=== PATIENT | male | born 1970 | race African-American/Black ===

== ENCOUNTER 2016-09-17 05:56 | Outpatient (CLI) | payer MEDICAID | END 2016-09-17 05:57 | disposition short-term general hospital (02) | DX: R07.9 Chest pain, unspecified (principal) | CPT/HCPCS: A0425; A0427 ==

== ENCOUNTER 2017-01-22 10:56 | Inpatient (IN) | payer MEDICAID ==
[2017-01-22] MEDS ORDERED: PANTOPRAZOLE 40 MG VIAL IVP STA (11:40)
[2017-01-22] MEDS ORDERED: SODIUM CHLORIDE 0.9% 1,000 ML IV ONE (11:40)
--- NOTE | 2017-01-22 11:43 | ED Physician Documentation ---
PD HPI GI BLEED - Stated complaint Stated Complaint: STOMACH PAIN,BLACK STOOL - Chief complaint Chief Complaint: Abd Pain - History obtained from History obtained from: Patient - History of Present Illness Timing - onset: How many days ago (10) Timing - duration: Days (10) Timing - details: Abrupt onset Pain level max: 3 Pain level now: 3 Associated symptoms: Black/tarry stool, Abdominal pain (epigastric). No: Vomiting, Coffee ground emesis, Hematemesis, BRBPR, Maroon stool, Diarrhea, Constipation, Fever, Dizzy, Near syncope / syncope, Loss of appetite Contributing factors: Aspirin use, Anticoagulated (plavix). No: Sick contact, Bad food, Travel, Recent antibiotics, Alcohol use Improved by: Other (nothing) Worsened by: Other (nothing) Similar symptoms before: Has not had sx before Recently seen: Not recently seen Review of Systems Ten Systems: 10 systems reviewed and negative Constitutional: denies: Fever, Chills Ears: denies: Ear pain Nose: denies: Rhinorrhea / runny nose, Congestion Throat: denies: Sore throat Cardiac: denies: Chest pain / pressure Respiratory: denies: Cough GI: denies: Nausea, Vomiting Skin: denies: Rash Musculoskeletal: denies: Neck pain, Back pain Neurologic: denies: Headache PD PAST MEDICAL HISTORY - Past Medical History Past Medical History: Yes Cardiovascular: Hypertension, High cholesterol, Coronary artery disease, [place] - Present Medications Home Medications: Ambulatory Orders Medication Instructions Recorded Confirmed Aspirin 81 mg PO DAILY 01/22/17 01/22/17 Atorvastatin Calcium [Lipitor] 40 mg PO DAILY 01/22/17 01/22/17 Clopidogrel [Plavix] 75 mg PO DAILY 01/22/17 01/22/17 Metoprolol Tartrate 12.5 mg PO DAILY 01/22/17 01/22/17 - Allergies Allergies/Adverse Reactions: Allergies Allergy/AdvReac Type Severity Reaction Status Date / Time No Known Drug Allergies Allergy Verified 01/22/17 11:10 - Social History Does the pt smoke?: No Smoking Status: Never smoker PD ED PE NORMAL - Vitals Vital signs reviewed: Yes - General General: Alert and oriented X 3, No acute distress - HEENT HEENT: PERRL, Moist mucous membranes, Pharynx benign - Neck Neck: Supple, no meningeal sign - Cardiac Cardiac: RRR, Strong equal pulses - Respiratory Respiratory: No respiratory distress, Clear bilaterally - Abdomen Abdomen: Soft, Non tender, Other (mild distention) - Rectal Rectal: Other (dark stool, hemoccult +) - Derm Derm: Warm and dry - Neuro Neuro: Alert and oriented X 3 - Psych Psych: Normal mood Results - Vitals Vitals: Vital Signs - 24 hr 01/22/17 01/22/17 11:00 11:53 Temperature 36.9 C Heart Rate 79 75 Respiratory 14 18 Rate Blood Pressure 142/86 H 140/112 H O2 Saturation 95 100 Oxygen O2 Source Room air - Labs Labs: Laboratory Tests 01/22/17 01/22/17 01/22/17 11:15 11:15 11:15 WBC 9.8 RBC 3.31 L Hgb 10.2 L Hct 31.1 L MCV 94.1 H MCH 31.0 MCHC 32.9 RDW 14.8 Plt Count 332 MPV 7.9 Neut # 7.1 H Lymph # 1.7 [place] # 0.9 Eos # 0.1 Baso # 0.1 Absolute Nucleated RBC 0.02 Nucleated RBCs 0.2 PT INR Sodium 136 Potassium 4.0 Chloride 105 Carbon Dioxide 24 Anion Gap 7.0 BUN 14 Creatinine 1.2 Estimated GFR (MDRD) 79 L Glucose 112 H Calcium 8.8 Total Bilirubin 0.6 AST 25 ALT 21 Alkaline Phosphatase 72 Total Protein 6.7 Albumin 3.9 Globulin 2.8 Albumin/Globulin Ratio 1.4 Lipase 30 Blood Type B POSITIVE Antibody Screen NEGATIVE 01/22/17 12:04 WBC RBC Hgb Hct MCV MCH MCHC RDW Plt Count MPV Neut # Lymph # [place] # Eos # Baso # Absolute Nucleated RBC Nucleated RBCs PT 11.1 INR 1.0 Sodium Potassium Chloride Carbon Dioxide Anion Gap BUN Creatinine Estimated GFR (MDRD) Glucose Calcium Total Bilirubin AST ALT Alkaline Phosphatase Total Protein Albumin Globulin Albumin/Globulin Ratio Lipase Blood Type Antibody Screen PD MEDICAL DECISION MAKING - ED course Complexity details: reviewed results, re-evaluated patient, considered differential, d/w patient, d/w internet marketing consultant ED course: Patient is a 46-year-old gentleman who presents to the emergency department with an upper GI bleed, likely ulcer related. He is on Plavix. He was given Protonix here as well as IV fluid. Feels better after IV fluids. Patient is well -appearing. Discussed the case with Dr. Valdes, surgery on-call who will consult. Also discussed with Dr. Fu, hospitalist who will place the patient in observation. This document was made in part using voice recognition software. While efforts are made to proofread this document, sound alike and grammatical errors may occur. Departure - Departure Disposition: ED Place in Observation Clinical Impression: Upper GI bleed Condition: Stable
[2017-01-22 11:45] LABS: BASOPHILS # (AUTO) 0.1 10^3/uL (0.0-0.1); BASOPHILS % (AUTO) 0.6 %; EOSINOPHILS # (AUTO) 0.1 10^3/uL (0.0-0.7); EOSINOPHILS % (AUTO) 0.8 %; HCT - HEMATOCRIT 31.1 % (42.0-52.0); HGB - HEMOGLOBIN 10.2 g/dL (14.0-18.0); LYMPHOCYTES # (AUTO) 1.7 10^3/uL (1.5-3.5); LYMPHOCYTES % (AUTO) 16.9 %; MEAN CORPUSCULAR HGB CONC 32.9 g/dL (32.0-36.0); MEAN CORPUSCULAR VOLUME 94.1 fL (80.0-94.0); MEAN PLATELET VOLUME 7.9 fL (7.4-11.4); MONOCYTES # (AUTO) 0.9 10^3/uL (0.0-1.0); MONOCYTES % (AUTO) 8.9 %; NEUTROPHILS # (AUTO) 7.1 10^3/uL (1.5-6.6); NEUTROPHILS % (AUTO) 72.8 %; NUCLEATED RED BLOOD CELLS AUTO 0.2 /100WBC; RED BLOOD COUNT 3.31 10^6/uL (4.70-6.10); RED CELL DISTRIBUTION WIDTH 14.8 % (12.0-15.0); UNCORRECTED WHITE BLOOD COUNT 9.8 x10^3/uL; WHITE BLOOD COUNT 9.8 x10^3/uL (4.8-10.8)
[2017-01-22 12:05] LABS: ALBUMIN/GLOBULIN RATIO 1.4 (1.0-2.2); BILIRUBIN,TOTAL 0.6 mg/dL (0.2-1.0); CALCIUM 8.8 mg/dL (8.5-10.3); CREATININE 1.2 mg/dL (0.6-1.2); TOTAL PROTEIN 6.7 g/dL (6.7-8.2)
[2017-01-22 12:32] LABS: PT - PROTHROMBIN TIME 11.1 secs (9.9-12.6)
[2017-01-22 12:39] LABS: PARTIAL THROMBOPLASTIN TIME 28.6 secs (24.9-33.3)
--- NOTE | 2017-01-22 12:45 | HISTORY & PHYSICAL EXAMINATION ---
Chief Complaint - Chief Complaint Chief Complaint: GI bleed GI Bleed Admit Template - Admitted From Admitted from: ED - History Obtained From Records Reviewed: RN notes reviewed, Old records reviewed History obtained from: Patient Exam limitations: No limitations - History of Present Illness Severity at the worst: reports: Moderate Bleeding quality: reports: Black, tarry stool Context-bleeding started w/: reports: Bowel movement, Spontaneous Timing: reports: Intermittent Duration: reports: Days: (2 weeks) Improved with: reports: Nothing Worsened by: reports: Exertion, Other (stress from job that he owns) Associated symptoms: reports: Feeling faint / dizzy, General Weakness (patient states she had stent placment in August. taking plavix and lipitor and baby aspirin since then. drinks about 1 beed or whiskey a couple days a week at night.) PMH/PSH - Past Medical History Cardiovascular: positive: Hypertension, High cholesterol, Coronary artery disease, CT GI: positive: GERD MRSA Hx?: No - Past Surgical History General: positive: Other (tonsilectomy) Cardiovascular: positive: Coronary stent, Other (myocardial infarction 2017) Social & Family Hx - Living Situation Living Arrangement: At home Living Situation: With spouse/s.o. 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 - POLST Patient has POLST: No POLST Status: Full Code - Family History Family History: Mother: Cancer (uncle), Diabetes, Type 2, Father: Cancer, Hypertension, Sister: Cancer, Brother: Cancer, Other family: Cancer Meds/Allgy - Home Medications Home Medications: Ambulatory Orders Medication Instructions Recorded Confirmed Aspirin 81 mg PO DAILY 01/22/17 01/22/17 Atorvastatin Calcium [Lipitor] 40 mg PO DAILY 01/22/17 01/22/17 Clopidogrel [Plavix] 75 mg PO DAILY 01/22/17 01/22/17 Metoprolol Tartrate 12.5 mg PO DAILY 01/22/17 01/22/17 - Allergies Allergies/Adverse Reactions: Allergies Allergy/AdvReac Type Severity Reaction Status Date / Time No Known Drug Allergies Allergy Verified 01/22/17 11:10 Review of Systems - Constitutional Constitutional: reports: Fatigue, Weakness - Respiratory Respiratory: denies: Cough, Hemoptysis, SOB with exertion - Gastrointestinal Gastrointestinal: reports: Abdominal pain, Black stools - Neurological Neurological: reports: General weakness - Hematologic/Lymphatic Hematologic/Lymphatic: denies: Bruising, Petechiae, Lymphadenopathy Exam - Vital Signs Vital Signs: Vital Signs x48h Temp Pulse Resp BP Pulse Ox 01/22/17 11:53 75 18 140/112 H 100 01/22/17 11:00 36.9 C 79 14 142/86 H 95 - Physical Exam General Appearance: positive: No acute distress, Alert Eyes Bilateral: positive: Normal inspection, PERRL ENT: positive: ENT inspection nml, Pharynx nml, No signs of dehydration Neck: positive: Thyroid nml, No JVD, Trachea midline Respiratory: positive: Chest non-tender, No respiratory distress, Breath sounds nml Cardiovascular: positive: Regular rate & rhythm, No murmur, No gallop Peripheral Pulses: positive: 2+ Abdomen: positive: Non-tender, Nml bowel sounds, No distention. negative: Guarding, Rebound Rectal: positive: Stool - heme POS, Black stool Back: negative: CVA tenderness (R), CVA tenderness (L) Skin: positive: No rash, Warm, Dry Extremities: positive: Non-tender, Full ROM, Nml appearance, No pedal edema Neurologic/Psychiatric: positive: Oriented x3, CN's nml (2-12), Motor nml, Sensation nml, Mood/affect nml Results - Lab Results Lab results reviewed: Yes Fish Bones: 01/22/17 11:15 01/22/17 11:15 Other Lab Results: Lab Results x24hrs 01/22/17 01/22/17 01/22/17 Range/Units 12:04 11:15 11:15 WBC (4.8-10.8) x10^3/uL RBC (4.70-6.10) 10^6/uL Hgb (14.0-18.0) g/dL Hct (42.0-52.0) % MCV (80.0-94.0) fL MCH (27.0-31.0) pg MCHC (32.0-36.0) g/dL RDW (12.0-15.0) % Plt Count (130-450) 10^3/uL MPV (7.4-11.4) fL Neut # (1.5-6.6) 10^3/uL Lymph # (1.5-3.5) 10^3/uL [place] # (0.0-1.0) 10^3/uL Eos # (0.0-0.7) 10^3/uL Baso # (0.0-0.1) 10^3/uL Absolute Nucleated RBC x10^3/uL Nucleated RBCs /100WBC PT 11.1 (9.9-12.6) secs INR 1.0 (0.8-1.2) Sodium 136 (135-145) mmol/L Potassium 4.0 (3.5-5.0) mmol/L Chloride 105 (101-111) mmol/L Carbon Dioxide 24 (21-32) mmol/L Anion Gap 7.0 (6-13) BUN 14 (6-20) mg/dL Creatinine 1.2 (0.6-1.2) mg/dL Estimated GFR (MDRD) 79 L (>89) Glucose 112 H (70-100) mg/dL Calcium 8.8 (8.5-10.3) mg/dL Total Bilirubin 0.6 (0.2-1.0) mg/dL AST 25 (10-42) IU/L ALT 21 (10-60) IU/L Alkaline Phosphatase 72 (42-121) IU/L Total Protein 6.7 (6.7-8.2) g/dL Albumin 3.9 (3.2-5.5) g/dL Globulin 2.8 (2.1-4.2) g/dL Albumin/Globulin Ratio 1.4 (1.0-2.2) Lipase 30 (22-51) U/L Blood Type B POSITIVE Antibody Screen NEGATIVE 01/22/17 Range/Units 11:15 WBC 9.8 (4.8-10.8) x10^3/uL RBC 3.31 L (4.70-6.10) 10^6/uL Hgb 10.2 L (14.0-18.0) g/dL Hct 31.1 L (42.0-52.0) % MCV 94.1 H (80.0-94.0) fL MCH 31.0 (27.0-31.0) pg MCHC 32.9 (32.0-36.0) g/dL RDW 14.8 (12.0-15.0) % Plt Count 332 (130-450) 10^3/uL MPV 7.9 (7.4-11.4) fL Neut # 7.1 H (1.5-6.6) 10^3/uL Lymph # 1.7 (1.5-3.5) 10^3/uL [place] # 0.9 (0.0-1.0) 10^3/uL Eos # 0.1 (0.0-0.7) 10^3/uL Baso # 0.1 (0.0-0.1) 10^3/uL Absolute Nucleated RBC 0.02 x10^3/uL Nucleated RBCs 0.2 /100WBC PT (9.9-12.6) secs INR (0.8-1.2) Sodium (135-145) mmol/L Potassium (3.5-5.0) mmol/L Chloride (101-111) mmol/L Carbon Dioxide (21-32) mmol/L Anion Gap (6-13) BUN (6-20) mg/dL Creatinine (0.6-1.2) mg/dL Estimated GFR (MDRD) (>89) Glucose (70-100) mg/dL Calcium (8.5-10.3) mg/dL Total Bilirubin (0.2-1.0) mg/dL AST (10-42) IU/L ALT (10-60) IU/L Alkaline Phosphatase (42-121) IU/L Total Protein (6.7-8.2) g/dL Albumin (3.2-5.5) g/dL Globulin (2.1-4.2) g/dL Albumin/Globulin Ratio (1.0-2.2) Lipase (22-51) U/L Blood Type Antibody Screen - EKG Results EKG Interpreted Independently: No EKG Comparison: positive: Unchanged from prior EKG ARRA - Anticipated LOS Anticipated Stay Length: 2 or more midnights - DVT/VTE - Prophylaxis VTE/DVT Device ordered at admit?: No Not Ordered - Medical Reason: Contraindicated (GI bleed) VTE/DVT Prophylaxis med ordered at admit?: No Not Ordered - Medical Reason: Contraindicated Impression/Plan - Problem List Problem List: IMPRESSION: 1. Acute upper GI bleeding with positive HPylori ulcer 2. CAD 3. Atherosclerotic heart disease of [place] coronary artery with CABG x 1 4. Nicotine dependence, cigarettes, in remission 5. Alcohol usage without dependence PLAN: 1. admit to inpatient 2. Clarithromycin, Amoxicillin and PPI for H pylori treatment x 14 days 3. continue on PPT Protonix 40mg IV BID for GI bleed 4. NPO after midnight for EGD and colonoscopy 5. Bowel prep for scope in the morning with Dr Valdes 6. Consult for surgery for scope 7. Q6 CBC and monitor for additional bleeding 8. Telemetry monitoring 9. supplemental oxygen 2 liters nasal cannula 10. monitor electrolytes in lab draws and replace as needed. 11. DVT prophylaxis with SCD only 12. continue lipitor and lipid profile ordered 13. hold plavix and aspirin 14. Ativan for possible alcohol withdrawal, [facility] Time spent with admission was 45 minutes for assessment and planning
[2017-01-22 13:14] LABS: MAGNESIUM 2.3 mg/dL (1.7-2.8)
[2017-01-22] MEDS ORDERED: SODIUM CHLORIDE FLUSH 0.9% 10 ML SYRINGE IVP PRN (13:31)
[2017-01-22] MEDS ORDERED: METOCLOPRAMIDE 10 MG/2 ML VIAL IVP SCH ×2 (14:00→20:00)
[2017-01-22] MEDS: SODIUM CHLORIDE FLUSH 0.9% 10 ML SYRINGE IVP SCH ×2 (14:06→20:40)
[2017-01-22] MEDS: SODIUM CHLORIDE 0.9% 1,000 ML IV SCH (14:06)
[2017-01-22 14:16] LABS: H. PYLORI IGG ANTIBODY POSITIVE (Negative); HPYLORI NEG QC Negative (Negative); HPYLORI POS QC POSITIVE (Positive)
[2017-01-22 14:29] LABS: CHOL/HDL RATIO 3.7 (<5.0); CHOLESTEROL 161 mg/dL; HDL CHOLESTEROL 44 mg/dL; HEMOGLOBIN A1C 0.42 g/dL; LDL/HDL RATIO 2.4 (<3.6); TRIGLYCERIDES 52 mg/dL; VLDL CHOLESTEROL 10 mg/dL
[2017-01-22] MEDS: AMOXICILLIN 250 MG CAPSULE PO SCH ×2 (14:50→17:33)
[2017-01-22] MEDS: PANTOPRAZOLE 40 MG VIAL IVP SCH (16:41)
[2017-01-22 20:23] LABS: HCT - HEMATOCRIT 30.6 % (42.0-52.0)
[2017-01-22] MEDS: SODIUM/POTASSIUM/MAG SULFATES 354 ML PREP KIT PO SCH (20:39)
[2017-01-22] MEDS: CLARITHROMYCIN 500 MG TABLET PO SCH (20:39)
[2017-01-23] MEDS: SODIUM CHLORIDE 0.9% 1,000 ML IV SCH ×2 (00:30→10:09)
[2017-01-23] MEDS: AMOXICILLIN 250 MG CAPSULE PO SCH ×2 (00:34→06:06)
[2017-01-23] MEDS: SODIUM/POTASSIUM/MAG SULFATES 354 ML PREP KIT PO SCH (00:54)
[2017-01-23 06:03] LABS: CALCIUM, IONIZED 1.13 mmol/L (1.15-1.33); VBG PH 7.345 (7.31-7.41)
[2017-01-23] MEDS: PANTOPRAZOLE 40 MG VIAL IVP SCH (06:06)
[2017-01-23] MEDS: SODIUM CHLORIDE FLUSH 0.9% 10 ML SYRINGE IVP SCH ×2 (06:06→10:14)
[2017-01-23 06:12] LABS: ALBUMIN/GLOBULIN RATIO 1.4 (1.0-2.2); BILIRUBIN,TOTAL 0.7 mg/dL (0.2-1.0); CALCIUM 8.5 mg/dL (8.5-10.3); CREATININE 1.2 mg/dL (0.6-1.2); POTASSIUM 4.4 mmol/L (3.5-5.0); TOTAL PROTEIN 6.2 g/dL (6.7-8.2)
--- NOTE | 2017-01-23 07:47 | Discharge Plan ---
Discharge Plan Disposition: Home, Self Care Condition: Good Prescriptions: Amoxicillin 500 mg PO BID #28 capsule Clarithromycin [Biaxin] 500 mg PO BID #28 tablet Metronidazole [Flagyl] 500 mg PO BID #28 tablet Pantoprazole [Protonix] 40 mg PO BIDAC #60 tab Diet: Cardiac Activity Restrictions: No Restrictions Shower Restrictions: No Driving Restrictions: No Weight Bearing: Full Weight Instruction Topics: H Pylori Ulcers Ch, H Pylori and Ulcers, Ulcer Bleeding Peptic Tx Additional Instructions or Follow Up instructions: Please take all home medications as prescribed. you have been given prescriptions for antibiotics. Take as prescribed. Stop aspirin for 2 weeks. Continue to eat a low calorie and low fat antiinflammatory diet. You will need to avoid food that cause acid buildup. Drink more water daily and avoid caffeine and no Sodas Get plenty of rest and sleep nightly. 7-8 hours of sleep is optimal Continue to exercise daily. walking is great and good for your mood Return to the ER if you have chest pain or experience more bleeding. You need to take your protonix twice a day as well Avoid all NSAIDS including motrin and aspirin. No Smoking: If you smoke, Please STOP! Call for help. Follow-up with: Rakesh Valdes MD [Provider Admit Priv/Credential] -
--- NOTE | 2017-01-23 08:25 | DISCHARGE SUMMARY ---
"Discharge Summary Admit Date: 01/22/17 Discharge Date: 01/23/17 Discharging Provider: Isabelle Hernandez APRN Code Status: Attempt Resuscitation Condition at Discharge: Good Discharge Disposition: 01 Home, Self Care Discharge Facility Name: home - DIAGNOSES Admission Diagnoses: 1. Upper GI bleed, unspecified 2. Obesity with BMI>30 3. CAD 4. Atherosclerotic heart disease of [place] coronary artery with stent 5. Hyperlipidemia 6. Hypertensive heart disease Discharge Diagnoses with Status of Each Condition: 1. ACute upper GI bleed secondary to H Pylori ulceration in upper GI 2. Obesity with BMI>30 wtih excessive caloric intake 3. Coronary artery disease with hypertension. 4. Atherosclerotic heart disease of [place] coronary artery with stent x 1 5. Mixed Hyperlipidemia - HPI History of Present Illness: - History of Present Illness Timing - onset: How many days ago (10) Timing - duration: Days (10) Timing - details: Abrupt onset Pain level max: 3 Pain level now: 3 Associated symptoms: Black/tarry stool, Abdominal pain (epigastric). No: Vomiting, Coffee ground emesis, Hematemesis, BRBPR, Maroon stool, Diarrhea, Constipation, Fever, Dizzy, Near syncope / syncope, Loss of appetite Contributing factors: Aspirin use, Anticoagulated (plavix). No: Sick contact, Bad food, Travel, Recent antibiotics, Alcohol use Improved by: Other (nothing) Worsened by: Other (nothing) Similar symptoms before: Has not had sx before Recently seen: Not recently seen - CONSULTS | PROCEDURES Consultations: Rakesh Valdes, surgery Procedures: Upper and lower GI scope/ EGD and colonoscopy - HOSPITAL COURSE Hospital Course: Patient is a 46 year old male who presented to the ER with complaints of black tarry stools x 2 weeks and weakness and fatigue. He recently had a DE approximately 6 months prior and been on Plavix and aspirin. He was admitted for evaluation of the GI bleed. He was started on PPI protonix 40mg PO BID and scheduled for a scope of upper and lower GI with Dr Valdes in the morning. He received the superprep at midnight the night prior to procedure and tolerated well. he ws found to have ulcerations nonbleeding and tested positive for H Pylori. He was started on triple treatment with PPI, flagyl, clarithymycin for 14 days. He was instructed to followup with surgery in 2 weeks post scope. He was on a cardiac diet for history and home meds held at midnight prior to scope. He did receive his lipitor the night before. He was monitored on telemetry and type and screen was done in the ER. He did receive IVF normal saline for hydration. CBC was monitored daily and remained stable. On day of discharge, vital signs were stable and he verbally understood all instructions given. He was to go home with his . He was given instructions for diet and weight loss. - ALLERGIES Allergies/Adverse Reactions: Allergies Allergy/AdvReac Type Severity Reaction Status Date / Time No Known Drug Allergies Allergy Verified 01/22/17 11:10 - MEDICATIONS Home Medications: Ambulatory Orders Medication Instructions Recorded Confirmed Aspirin 81 mg PO DAILY 01/22/17 01/22/17 Atorvastatin Calcium [Lipitor] 40 mg PO DAILY 01/22/17 01/22/17 Clopidogrel [Plavix] 75 mg PO DAILY 01/22/17 01/22/17 Metoprolol Tartrate 12.5 mg PO DAILY 01/22/17 01/22/17 Amoxicillin 500 mg PO BID #28 capsule 01/23/17 Clarithromycin [Biaxin] 500 mg PO BID #28 tablet 01/23/17 Metronidazole [Flagyl] 500 mg PO BID #28 tablet 01/23/17 Pantoprazole [Protonix] 40 mg PO BIDAC #60 tab 01/23/17 - PHYSICAL EXAM AT DISCHARGE General Appearance: positive: No acute distress, Alert Eyes Bilateral: positive: Normal inspection, PERRL, EOMI ENT: positive: ENT inspection nml, Pharynx nml, No signs of dehydration Neck: positive: Nml inspection, Thyroid nml, No JVD, Trachea midline Respiratory: positive: Chest non-tender, No respiratory distress, Breath sounds nml Cardiovascular: positive: Regular rate & rhythm, No murmur, No gallop Peripheral Pulses: positive: 2+ Abdomen: positive: Non-tender, Nml bowel sounds, No distention. negative: Guarding, Rebound Rectal: positive: Stool - heme POS Back: positive: Nml inspection. negative: CVA tenderness (R), CVA tenderness (L ) Skin: positive: Color nml, No rash, Warm, Dry Extremities: positive: Non-tender, Full ROM, Nml appearance, No pedal edema Neurologic/Psychiatric: positive: Oriented x3, CN's nml (2-12), Motor nml, Sensation nml, Mood/affect nml - LABS Result Diagrams: 01/22/17 20:02 01/23/17 05:27 Other Lab Results: Abnormal Lab Results 01/22/17 01/22/17 01/22/17 11:15 11:15 11:15 RBC 3.31 10^6/uL L 10^6/uL (4.70-6.10) Hgb 10.2 g/dL L g/dL (14.0-18.0) Hct 31.1 % L % (42.0-52.0) MCV 94.1 fL H fL (80.0-94.0) Neut # 7.1 10^3/uL H 10^3/uL (1.5-6.6) Ionized Calcium Estimated GFR (MDRD) 79 L (>89) Glucose 112 mg/dL H mg/dL (70-100) Estim Average Glucose Total Protein HDL Cholesterol 44 mg/dL L mg/dL (60 - ) H. pylori IgG Antibody 01/22/17 01/22/17 01/22/17 11:15 11:15 20:02 RBC Hgb 10.0 g/dL L g/dL (14.0-18.0) Hct 30.6 % L % (42.0-52.0) MCV Neut # Ionized Calcium Estimated GFR (MDRD) Glucose Estim Average Glucose 114 H (70-100) Total Protein HDL Cholesterol H. pylori IgG Antibody POSITIVE H (Negative) 01/23/17 01/23/17 05:27 05:27 RBC Hgb Hct MCV Neut # Ionized Calcium 1.13 mmol/L L mmol/L (1.15-1.33) Estimated GFR (MDRD) 79 L (>89) Glucose 111 mg/dL H mg/dL (70-100) Estim Average Glucose Total Protein 6.2 g/dL L g/dL (6.7-8.2) HDL Cholesterol H. pylori IgG Antibody - DIAGNOSTIC IMAGING Diagnostic Imaging Results: Other (discussed results of EGD and colonoscopy with Dr Valdes) Diagnostic Imaging Results Comments: scopes revealed only ulcerations with H Pylori and non bleeding - FOLLOW UP Follow Up: Will have pt follow up with PCP for further care or return if pt worsens. Pt comfortable with plan. Pt counseled regarding expected course and signs and symptoms for which I believe an urgent re-evaluation would be necessary. Pt with good understanding and agreement to plan. Time spent on discharge was 45 minutes for education and planning"
[2017-01-23] MEDS ORDERED: SODIUM CHLORIDE 0.9% 1,000 ML IV ONE (08:49)
[2017-01-23] MEDS ORDERED: BENZOCAINE/TETRACAINE/BUTAMBEN SPRAY 56 GM TOP ONE (08:50)
[2017-01-23] MEDS ORDERED: POLYETHYLENE GLYCOL 3350 17 GM PACKET PO SCH (09:00)
[2017-01-23] MEDS: CLARITHROMYCIN 500 MG TABLET PO SCH (10:10)
[2017-01-23 11:15] VITALS: BP 122/76
[2017-01-23] MEDS ORDERED: MIDAZOLAM 2 MG/2 ML VIAL IVP ONE (11:24)
[2017-01-23] MEDS ORDERED: GLYCOPYRROLATE 1 MG/5 ML VIAL IVP ONE (11:24)
[2017-01-23] MEDS ORDERED: PROPOFOL 200 MG/20 ML VIAL IVP ONE (11:24)
[2017-01-23] MEDS ORDERED: KETAMINE 500 MG/10 ML VIAL IVP ONE (11:24)
== END 2017-01-23 11:25 | disposition home or self-care (01) | DRG 379 ==
LOC: ED 10:56 → MS2 12:37
PROVIDERS: ADMIT Nurse Practitioner; ATTEND Nurse Practitioner
PROC: 0DB78ZX Excision of Stomach, Pylorus, Via Natural or Artificial Opening Endoscopic, Diagnostic (ICD-10-PCS; principal; 2017-01-23 08:45)
PROC: 0DBK8ZX Excision of Ascending Colon, Via Natural or Artificial Opening Endoscopic, Diagnostic (ICD-10-PCS; 2017-01-23 08:45)
DX: K25.4 Chronic or unspecified gastric ulcer with hemorrhage (principal); B96.81 Helicobacter pylori [H. pylori] as the cause of diseases classified elsewhere; E66.09 Other obesity due to excess calories; I25.10 Atherosclerotic heart disease of native coronary artery without angina pectoris; I10 Essential (primary) hypertension; K21.9 Gastro-esophageal reflux disease without esophagitis; E78.2 Mixed hyperlipidemia; K20.9 Esophagitis, unspecified; K29.80 Duodenitis without bleeding; K63.5 Polyp of colon; I25.2 Old myocardial infarction; Z95.5 Presence of coronary angioplasty implant and graft; Z79.82 Long term (current) use of aspirin; Z79.02 Long term (current) use of antithrombotics/antiplatelets; Z87.891 Personal history of nicotine dependence; Z68.30 Body mass index [BMI] 30.0-30.9, adult
CPT/HCPCS: 36415; 80053; 80061; 82330; 83036; 83690; 83735; 84100; 85014; 85018; 85025; 85610; 85730; 86850; 86900; 86901; 87339; 88305; 88342; 93005; 96361; 96374; 99284; 99285

== ENCOUNTER 2017-03-13 12:51 | Emergency (ER) | payer MEDICAID ==
[2017-03-13] MEDS ORDERED: CYCLOBENZAPRINE 10 MG TABLET PO STA (15:23)
[2017-03-13] MEDS ORDERED: BUPIVACAINE 0.5% PF 30 ML VIAL SUBQ STA (15:23)
[2017-03-13] MEDS ORDERED: LIDOCAINE PATCH 5% TOP STA (15:23)
[2017-03-13] MEDS ORDERED: CYCLOBENZAPRINE 10 MG TABLET PO ONE (15:35)
[2017-03-13] MEDS ORDERED: BUPIVACAINE 0.5% PF 30 ML VIAL ONE (15:35)
[2017-03-13] MEDS ORDERED: LIDOCAINE PATCH 5% TOP ONE (15:36)
--- NOTE | 2017-03-13 16:09 | XRAY Preliminary Report ---
Exam: XR Chest 2 View PA/LAT IMPRESSION: Normal 2-view chest radiography. [facility] SITE ID: [id number]
--- NOTE | 2017-03-13 16:12 | XRAY Report ---
EXAM: CHEST RADIOGRAPHY EXAM DATE: 03/13/2017 04:00 PM. CLINICAL HISTORY: Chest and neck pain. COMPARISON: None. TECHNIQUE: 2 views. FINDINGS: Lungs/Pleura: No focal opacities evident. No pleural effusion. No pneumothorax. Normal volumes. Mediastinum: Heart and mediastinal contours are unremarkable. Other: None. IMPRESSION: Normal 2-view chest radiography. [facility] Referring Provider Line: [phone] SITE ID: [id number]
--- NOTE | 2017-03-13 16:23 | ED Physician Documentation ---
History of Present Illness - Stated complaint Stated Complaint: NECK/SHOULDER PX - Chief complaint Chief Complaint: Heent - Additonal information Additional information: hx fro pt L neck and trap region pain for several weeks hurts to move hx CAD but no sig cp or soa no numbness or weakness no trauma or injury Review of Systems Constitutional: denies: Fever, Chills Throat: denies: Sore throat Cardiac: denies: Chest pain / pressure GI: denies: Abdominal Pain Musculoskeletal: reports: Neck pain, Back pain Neurologic: denies: Focal weakness, Numbness PD PAST MEDICAL HISTORY - Past Medical History Cardiovascular: Hypertension, High cholesterol, Coronary artery disease, [place] Respiratory: None Neuro: None Endocrine/Autoimmune: None GI: GERD : None HEENT: None Psych: None Musculoskeletal: None Derm: None - Past Surgical History Past Surgical History: No General: Other Cardiovascular: Coronary stent, Other - Present Medications Home Medications: Ambulatory Orders Medication Instructions Recorded Confirmed Atorvastatin Calcium [Lipitor] 40 mg PO DAILY 01/22/17 03/13/17 Clopidogrel [Plavix] 75 mg PO DAILY 01/22/17 03/13/17 Metoprolol Tartrate 12.5 mg PO DAILY 01/22/17 03/13/17 Cyclobenzaprine [Flexeril] 10 mg PO TID PRN #20 tablet 03/13/17 HYDROcod/ACETAM 5/325 [[place] 5/325] 1 ea PO Q6H PRN #10 tablet 03/13/17 Lidocaine Patch 5% [Lidoderm Patch] 1 each TOP DAILY PRN #10 patch 03/13/17 - Allergies Allergies/Adverse Reactions: Allergies Allergy/AdvReac Type Severity Reaction Status Date / Time No Known Drug Allergies Allergy Verified 01/22/17 11:10 - Social History Does the pt smoke?: No Smoking Status: Former smoker Does the pt drink ETOH?: Yes Does the pt have substance abuse?: No - Immunizations Immunizations are current?: Yes - POLST Patient has POLST: No POLST Status: Full Code PD ED PE NORMAL - Vitals Vital signs reviewed: Yes - Neck Neck: No bony TTP, Other (soft tissue TTP L lateral neck, deltoid, and trap region, limited ROm 2/2 same) - Derm Derm: Normal color - Extremities Extremities: Other (nl sensation all demratomes left arm, shoulder ABD, 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 OK thumbs up and wrist ext 5/5, + radial pulse) - Neuro Neuro: No motor deficit, No sensory deficit Results - Vitals Vitals: Vital Signs - 24 hr 03/13/17 03/13/17 13:03 16:51 Temperature 36.9 C Heart Rate 83 81 Respiratory 16 18 Rate Blood Pressure 130/66 134/94 H O2 Saturation 99 100 Oxygen O2 Source Room air PD MEDICAL DECISION MAKING - ED course ED course: NSAIDS and steroids interact with plavix Departure - Departure Disposition: 01 Home, Self Care Clinical Impression: Trapezius muscle spasm, Cervical radiculopathy Condition: Good Instructions: ED Spasm Neck No Injury, ED Cervical Radiculopathy Follow-Up: [facility] [Provider Group] [facility] [Provider Group] Prescriptions: Cyclobenzaprine [Flexeril] 10 mg PO TID PRN #20 tablet PRN Reason: Spasms Lidocaine Patch 5% [Lidoderm Patch] 1 each TOP DAILY PRN #10 patch PRN Reason: Pain HYDROcod/ACETAM 5/325 [[place] 5/325] 1 ea PO Q6H PRN #10 tablet PRN Reason: Severe Pain Comments: Your blood pressure was high today Please call one of the clinic I listed to establish care, recheck your blood pressure and follow up about the neck pain Forms: Activity restrictions
[2017-03-13 16:51] VITALS: BP 134/94
== END 2017-03-13 17:17 | disposition home or self-care (01) ==
LOC: ED 12:51
DX: M62.838 Other muscle spasm (principal); M54.12 Radiculopathy, cervical region; I10 Essential (primary) hypertension; E78.00 Pure hypercholesterolemia, unspecified; I25.10 Atherosclerotic heart disease of native coronary artery without angina pectoris; Z95.5 Presence of coronary angioplasty implant and graft; I25.2 Old myocardial infarction; Z87.891 Personal history of nicotine dependence
CPT/HCPCS: 71020; 93005; 99283; A9270

== ENCOUNTER 2017-05-11 14:58 | Outpatient (CLI) | payer MEDICAID ==
[2017-05-11 12:25] LABS: BASOPHILS % (AUTO) 0.5 %; EOSINOPHILS % (AUTO) 0.6 %; HCT - HEMATOCRIT 43.3 % (42.0-52.0); HGB - HEMOGLOBIN 14.2 g/dL (14.0-18.0); LYMPHOCYTES # (AUTO) 1.6 10^3/uL (1.5-3.5); LYMPHOCYTES % (AUTO) 18.5 %; MEAN CORPUSCULAR HEMOGLOBIN 29.1 pg (27.0-31.0); MEAN CORPUSCULAR HGB CONC 32.9 g/dL (32.0-36.0); MEAN CORPUSCULAR VOLUME 88.5 fL (80.0-94.0); MEAN PLATELET VOLUME 8.7 fL (7.4-11.4); MONOCYTES # (AUTO) 0.8 10^3/uL (0.0-1.0); MONOCYTES % (AUTO) 9.7 %; NEUTROPHILS # (AUTO) 6.1 10^3/uL (1.5-6.6); NEUTROPHILS % (AUTO) 70.7 %; RED BLOOD COUNT 4.89 10^6/uL (4.70-6.10); RED CELL DISTRIBUTION WIDTH 14.7 % (12.0-15.0); UNCORRECTED WHITE BLOOD COUNT 8.6 x10^3/uL; WHITE BLOOD COUNT 8.6 x10^3/uL (4.8-10.8)
[2017-05-11 12:30] LABS: BUN - BLOOD UREA NITROGEN 12 mg/dL (6-20); CARBON DIOXIDE - CO2 24 mmol/L (21-32); CHLORIDE 104 mmol/L (101-111); CHOL/HDL RATIO 5.5 (<5.0); CHOLESTEROL 224 mg/dL; CREATININE 1.2 mg/dL (0.6-1.2); GFR - MDRD 78 (>89); GLUCOSE 132 mg/dL (70-100); HDL CHOLESTEROL 41 mg/dL; LDL/HDL RATIO 4.2 (<3.6); POTASSIUM 4.1 mmol/L (3.5-5.0); SODIUM 136 mmol/L (135-145); TRIGLYCERIDES 62 mg/dL; VLDL CHOLESTEROL 12 mg/dL
== END 2017-05-11 14:59 | disposition home or self-care (01) ==
LOC: LAB.WCP 14:58
PROVIDERS: ATTEND Internal Medicine Cardiovascular Disease
DX: E78.5 Hyperlipidemia, unspecified (principal); I25.10 Atherosclerotic heart disease of native coronary artery without angina pectoris
CPT/HCPCS: 36415; 80048; 80061; 85025

== ENCOUNTER 2017-07-04 08:00 | Outpatient (CLI) | payer MEDICAID ==
[2017-07-04 12:40] LABS: BASOPHILS % (AUTO) 0.4 %; EOSINOPHILS # (AUTO) 0.1 10^3/uL (0.0-0.7); EOSINOPHILS % (AUTO) 0.6 %; HGB - HEMOGLOBIN 13.8 g/dL (14.0-18.0); LYMPHOCYTES # (AUTO) 1.9 10^3/uL (1.5-3.5); LYMPHOCYTES % (AUTO) 21.6 %; MEAN CORPUSCULAR HEMOGLOBIN 29.8 pg (27.0-31.0); MEAN CORPUSCULAR VOLUME 90.2 fL (80.0-94.0); MEAN PLATELET VOLUME 8.9 fL (7.4-11.4); MONOCYTES # (AUTO) 0.6 10^3/uL (0.0-1.0); MONOCYTES % (AUTO) 7.2 %; NEUTROPHILS % (AUTO) 70.2 %; PLT - PLATELET COUNT 244 10^3/uL (130-450); RED BLOOD COUNT 4.63 10^6/uL (4.70-6.10); RED CELL DISTRIBUTION WIDTH 15.9 % (12.0-15.0); WHITE BLOOD COUNT 8.6 x10^3/uL (4.8-10.8)
[2017-07-04 13:07] LABS: ALBUMIN 4.2 g/dL (3.2-5.5); ALBUMIN/GLOBULIN RATIO 1.4 (1.0-2.2); ALKALINE PHOSPHATASE 84 IU/L (42-121); ALT ALANINE AMINOTRANSFERASE 29 IU/L (10-60); AST ASPARTATE AMINOTRANSFERASE 36 IU/L (10-42); BUN - BLOOD UREA NITROGEN 12 mg/dL (6-20); CARBON DIOXIDE - CO2 27 mmol/L (21-32); CHLORIDE 107 mmol/L (101-111); CHOL/HDL RATIO 2.7 (<5.0); CHOLESTEROL 126 mg/dL; CREATININE 1.2 mg/dL (0.6-1.2); GFR - MDRD 78 (>89); GLUCOSE 124 mg/dL (70-100); HDL CHOLESTEROL 47 mg/dL; LDL CHOLESTEROL,CALCULATED 68 mg/dL; LDL/HDL RATIO 1.4 (<3.6); SODIUM 137 mmol/L (135-145); TOTAL PROTEIN 7.2 g/dL (6.7-8.2); VLDL CHOLESTEROL 11 mg/dL
== END 2017-07-04 08:01 | disposition home or self-care (01) ==
LOC: LAB.N 08:00
PROVIDERS: ATTEND Family Medicine
DX: I21.3 ST elevation (STEMI) myocardial infarction of unspecified site (principal)
CPT/HCPCS: 36415; 80053; 80061; 84443; 85025

== ENCOUNTER 2017-09-19 09:51 | Outpatient (CLI) | payer MEDICAID ==
[2017-09-19 12:29] LABS: CALCIUM 9.3 mg/dL (8.5-10.3); CREATININE 1.1 mg/dL (0.6-1.2)
== END 2017-09-19 09:52 | disposition home or self-care (01) ==
LOC: LAB.N 09:51
PROVIDERS: ATTEND Internal Medicine Cardiovascular Disease
DX: I25.10 Atherosclerotic heart disease of native coronary artery without angina pectoris (principal)
CPT/HCPCS: 36415; 80048

== ENCOUNTER 2018-06-15 09:00 | Outpatient (CLI) | payer MEDICAID ==
[2018-06-15 12:34] LABS: BASOPHILS # (AUTO) 0.1 10^3/uL (0.0-0.1); BASOPHILS % (AUTO) 0.8 %; EOSINOPHILS % (AUTO) 0.3 %; HGB - HEMOGLOBIN 14.6 g/dL (14.0-18.0); LYMPHOCYTES # (AUTO) 1.3 10^3/uL (1.5-3.5); LYMPHOCYTES % (AUTO) 15.9 %; MEAN CORPUSCULAR HEMOGLOBIN 30.5 pg (27.0-31.0); MEAN CORPUSCULAR HGB CONC 33.3 g/dL (32.0-36.0); MEAN CORPUSCULAR VOLUME 91.8 fL (80.0-94.0); MEAN PLATELET VOLUME 8.6 fL (7.4-11.4); MONOCYTES # (AUTO) 0.5 10^3/uL (0.0-1.0); MONOCYTES % (AUTO) 6.2 %; NEUTROPHILS # (AUTO) 6.1 10^3/uL (1.5-6.6); NEUTROPHILS % (AUTO) 76.8 %; PLT - PLATELET COUNT 250 10^3/uL (130-450); RED BLOOD COUNT 4.79 10^6/uL (4.70-6.10); RED CELL DISTRIBUTION WIDTH 13.8 % (12.0-15.0); WHITE BLOOD COUNT 7.9 x10^3/uL (4.8-10.8)
[2018-06-15 12:56] LABS: ALBUMIN 4.7 g/dL (3.2-5.5); ALBUMIN/GLOBULIN RATIO 1.6 (1.0-2.2); ALKALINE PHOSPHATASE 93 IU/L (42-121); ALT ALANINE AMINOTRANSFERASE 27 IU/L (10-60); AST ASPARTATE AMINOTRANSFERASE 32 IU/L (10-42); BILIRUBIN,TOTAL 1.4 mg/dL (0.2-1.0); BUN - BLOOD UREA NITROGEN 14 mg/dL (6-20); CARBON DIOXIDE - CO2 27 mmol/L (21-32); CHLORIDE 105 mmol/L (101-111); CHOLESTEROL 127 mg/dL; CREATININE 1.2 mg/dL (0.6-1.2); GFR - MDRD 78 (>89); GLUCOSE 106 mg/dL (70-100); HDL CHOLESTEROL 42 mg/dL; LDL CHOLESTEROL,CALCULATED 68 mg/dL; LDL/HDL RATIO 1.6 (<3.6); SODIUM 139 mmol/L (135-145); TOTAL PROTEIN 7.6 g/dL (6.7-8.2); VLDL CHOLESTEROL 17 mg/dL
[2018-06-15 13:28] LABS: HB2 TOTAL 15.5 g/dL; HEMOGLOBIN A1C 0.66 g/dL
== END 2018-06-15 23:59 | disposition home or self-care (01) ==
LOC: LAB.N 09:00
PROVIDERS: ATTEND Family Medicine
DX: E66.9 Obesity, unspecified (principal); R73.01 Impaired fasting glucose; I21.3 ST elevation (STEMI) myocardial infarction of unspecified site
CPT/HCPCS: 36415; 80053; 80061; 83036; 83721; 84443; 85025

== ENCOUNTER 2018-12-18 12:35 | Emergency (ER) | payer MEDICAID ==
--- NOTE | 2018-12-18 12:54 | ED Physician Documentation ---
PD HPI GI BLEED - Stated complaint Stated Complaint: BLOOD IN STOOL - Chief complaint Chief Complaint: Abd Pain - History obtained from History obtained from: Patient - History of Present Illness Timing - onset: How many weeks ago (2) Timing - duration: Weeks (2) Timing - details: Intermittant Associated symptoms: BRBPR (he has had formed stools without constipation nor straining and has noted occasional red blood on TP when wiping. Today he had a larger amount after BM, noting some red coloring in toilet water. No dark blood and no clots nor melena.). No: Black/tarry stool, Diarrhea, Constipation, Abdominal pain Similar symptoms before: Has not had sx before (he has had melena in the past related to gastric ulcer bleeding. No prior BRBPR.) Review of Systems Constitutional: denies: Fever, Myalgias Nose: denies: Rhinorrhea / runny nose, Congestion Throat: denies: Sore throat Respiratory: denies: Cough GI: denies: Abdominal Pain, Nausea, Vomiting, Constipation, Diarrhea Endocrine: reports: Easy bruising / bleeding. denies: Weight loss PD PAST MEDICAL HISTORY - Past Medical History Cardiovascular: Hypertension, High cholesterol, Coronary artery disease, [place] Respiratory: None Endocrine/Autoimmune: None GI: GERD, Ulcers (in the past), Other (had upper and lower endoscopies when he had bleeding ulcer and says there were not any colonic lesions at that time. ) : None HEENT: None Psych: None Musculoskeletal: None Derm: None - Past Surgical History Past Surgical History: No General: Other Cardiovascular: Coronary stent, Other - Present Medications Home Medications: Ambulatory Orders Medication Instructions Recorded Confirmed Atorvastatin Calcium [Lipitor] 40 mg PO DAILY 01/22/17 03/13/17 Clopidogrel [Plavix] 75 mg PO DAILY 01/22/17 03/13/17 Metoprolol Tartrate 12.5 mg PO DAILY 01/22/17 03/13/17 Cyclobenzaprine [Flexeril] 10 mg PO TID PRN #20 tablet 03/13/17 HYDROcod/ACETAM 5/325 [[place] 5/325] 1 ea PO Q6H PRN #10 tablet 03/13/17 Lidocaine Patch 5% [Lidoderm Patch] 1 each TOP DAILY PRN #10 patch 03/13/17 Hydrocortisone Acetate [Anucort-Hc] 25 mg RC DAILY #5 supp.rect 12/18/18 - Allergies Allergies/Adverse Reactions: Allergies Allergy/AdvReac Type Severity Reaction Status Date / Time No Known Drug Allergies Allergy Verified 12/18/18 12:42 - Social History Does the pt smoke?: No Smoking Status: Former smoker Does the pt drink ETOH?: Yes Does the pt have substance abuse?: No - Immunizations Immunizations are current?: Yes - POLST Patient has POLST: No POLST Status: Full Code PD ED PE NORMAL - Vitals Vital signs reviewed: Yes - General General: Alert and oriented X 3, No acute distress, Well developed/nourished - Abdomen Abdomen: Normal bowel sounds, Soft, Non tender, Non distended, No organomegaly - Male Male : Deferred - Rectal Rectal: Other (external normal. Digital exam showing hemorrhoid at 6-8 o'clock position, with slight tenderness. No bleeding at this time, and stool in vault is guiac negative. ) Results - Vitals Vitals: Vital Signs - 24 hr 12/18/18 12/18/18 12:40 14:38 Temperature 37.0 C Heart Rate 88 77 Respiratory 19 18 Rate Blood Pressure 140/92 H 136/94 H O2 Saturation 98 97 Oxygen O2 Source Room air - Labs Labs: Laboratory Tests 12/18/18 12/18/18 13:30 13:30 WBC 8.0 RBC 4.53 L Hgb 13.4 L Hct 42.2 MCV 93.2 MCH 29.6 MCHC 31.8 L RDW 13.3 Plt Count 247 MPV 9.7 Neut # (Auto) 5.3 Lymph # (Auto) 1.8 [place] # (Auto) 0.8 Eos # (Auto) 0.0 Baso # (Auto) 0.0 Absolute Nucleated RBC 0.00 Nucleated RBC % 0.0 Sodium 138 Potassium 3.6 Chloride 105 Carbon Dioxide 22 Anion Gap 11.0 BUN 12 Creatinine 1.1 Estimated GFR (MDRD) 86 L Glucose 94 Calcium 9.3 Total Bilirubin 1.0 AST 32 ALT 30 Alkaline Phosphatase 82 Total Protein 7.6 Albumin 4.5 Globulin 3.1 Albumin/Globulin Ratio 1.5 Lipase 34 PD MEDICAL DECISION MAKING - ED course Complexity details: considered differential (seems to be lower GI bleeding, and appears likely hemorrhoidal. ), d/w patient Departure - Departure Disposition: 01 Home, Self Care Clinical Impression: Rectal bleeding Hemorrhoid Qualifiers: Hemorrhoid type: unspecified Qualified Code(s): K64.9 - Unspecified hemorrhoids Condition: Stable Record reviewed to determine appropriate education?: Yes Instructions: ED Hemorrhoids, ED Hematochezia Stable Follow-Up: South Patel PA-C [Primary Care Provider] - Prescriptions: Hydrocortisone Acetate [Anucort-Hc] 25 mg RC DAILY #5 supp.rect Comments: You do have a internal hemorrhoid that I can feel on exam. I presume this is the cause of your bleeding. You may experience some blood with wiping after bowel movements for a few more days. Use a hemorrhoidal suppository daily for the next 5 days to decrease inflammation of the hemorrhoid. Recheck if not improved over the next few days. Return if significant amount of bleeding occurs or you notice it darker or black as he had had with your upper GI bleeding previously. Discharge Date/Time: 12/18/18 14:39
[2018-12-18 13:39] LABS: BASOPHILS % (AUTO) 0.5 %; EOSINOPHILS % (AUTO) 0.4 %; HGB - HEMOGLOBIN 13.4 g/dL (14.0-18.0); LYMPHOCYTES # (AUTO) 1.8 10^3/uL (1.5-3.5); LYMPHOCYTES % (AUTO) 21.8 %; MEAN CORPUSCULAR HEMOGLOBIN 29.6 pg (27.0-31.0); MEAN CORPUSCULAR HGB CONC 31.8 g/dL (32.0-36.0); MEAN CORPUSCULAR VOLUME 93.2 fL (80.0-94.0); MEAN PLATELET VOLUME 9.7 fL (7.4-11.4); MONOCYTES # (AUTO) 0.8 10^3/uL (0.0-1.0); MONOCYTES % (AUTO) 10.3 %; NEUTROPHILS # (AUTO) 5.3 10^3/uL (1.5-6.6); NEUTROPHILS % (AUTO) 66.1 %; PLT - PLATELET COUNT 247 10^3/uL (130-450); RED BLOOD COUNT 4.53 10^6/uL (4.70-6.10); RED CELL DISTRIBUTION WIDTH 13.3 % (12.0-15.0)
[2018-12-18 13:55] LABS: ALBUMIN 4.5 g/dL (3.2-5.5); ALBUMIN/GLOBULIN RATIO 1.5 (1.0-2.2); CALCIUM 9.3 mg/dL (8.5-10.3); CREATININE 1.1 mg/dL (0.6-1.2); TOTAL PROTEIN 7.6 g/dL (6.7-8.2)
[2018-12-18 14:39] VITALS: BP 136/94
== END 2018-12-18 14:39 | disposition home or self-care (01) ==
LOC: ED 12:35
DX: K64.8 Other hemorrhoids (principal); I10 Essential (primary) hypertension; Z87.11 Personal history of peptic ulcer disease; I25.10 Atherosclerotic heart disease of native coronary artery without angina pectoris; Z95.5 Presence of coronary angioplasty implant and graft; Z79.02 Long term (current) use of antithrombotics/antiplatelets; Z87.891 Personal history of nicotine dependence
CPT/HCPCS: 36415; 80053; 83690; 85025; 99282; 99283

== ENCOUNTER 2019-01-21 13:42 | Emergency (ER) | payer MEDICAID ==
[2019-01-21 14:15] VITALS: BP 141/78
[2019-01-21 14:29] LABS: BILIRUBIN,URINE NEGATIVE (NEGATIVE); GLUCOSE, URINE (UA) NEGATIVE (NEGATIVE); KETONES,URINE (UA) NEGATIVE (NEGATIVE); LEUKOCYTE ESTERASE, URINE NEGATIVE (NEGATIVE); NITRITE,URINE NEGATIVE (NEGATIVE); OCCULT BLOOD,URINE NEGATIVE (NEGATIVE); PH,URINE 5.5 PH (5.0-7.5); PROTEIN,URINE NEGATIVE (NEGATIVE); UROBILINOGEN,URINE 0.2 (NORMAL) E.U./dL (NORMAL)
[2019-01-21 15:00] LABS: CLARITY,URINE CLEAR (CLEAR)
[2019-01-21 15:16] LABS: BACTERIA,URINE None Seen /HPF (None Seen); RBC,URINE 0-5 /HPF (0-5); SQUAMOUS EPITHELIAL CELL,UR RARE Squamous (<= Few)
== END 2019-01-21 14:45 | disposition left against medical advice (07) ==
LOC: ED 13:42
DX: Z53.21 Procedure and treatment not carried out due to patient leaving prior to being seen by health care provider (principal)
CPT/HCPCS: 80053; 81001; 83690; 84484; 85025; 87086

== ENCOUNTER 2019-04-18 09:47 | Emergency (ER) | payer MEDICAID ==
[2019-04-18] MEDS ORDERED: predniSONE 20 MG TABLET PO STA (10:52)
[2019-04-18] MEDS ORDERED: IBUPROFEN 800 MG TABLET PO STA (10:52)
--- NOTE | 2019-04-18 10:57 | ED Physician Documentation ---
History of Present Illness - Stated complaint Stated Complaint: FINGER NUMBNESS - Chief complaint Chief Complaint: General - History obtained from History obtained from: Patient - History of Present Illness Timing: How many weeks ago (1) Pain level max: 0 Pain level now: 0 - Additonal information Additional information: 49-year-old gentleman presents to the emergency department with a history of cervical radiculopathy. He states he has tingling in his fingers, worsening over the past week. Feels similar to prior episodes. Also has pain with movement of the left elbow. No swelling. No skin changes. No trauma. He does have full range of motion, states it is "sore". Worse with movement and better with rest. Has not taken anything for this. Review of Systems Constitutional: denies: Fever, Chills Nose: denies: Rhinorrhea / runny nose, Congestion GI: denies: Nausea, Vomiting, Diarrhea Skin: denies: Rash Musculoskeletal: denies: Back pain, Extremity pain, Joint pain Neurologic: denies: Focal weakness, Headache, Head injury PD PAST MEDICAL HISTORY - Past Medical History Cardiovascular: Hypertension, High cholesterol, Coronary artery disease, [place] Respiratory: None Endocrine/Autoimmune: None GI: GERD, Ulcers, Other : None HEENT: None Psych: None Musculoskeletal: None Derm: None - Past Surgical History Past Surgical History: No General: Other Cardiovascular: Coronary stent, Other - Present Medications Home Medications: Ambulatory Orders Medication Instructions Recorded Confirmed Atorvastatin Calcium [Lipitor] 40 mg PO DAILY 01/22/17 03/13/17 Clopidogrel [Plavix] 75 mg PO DAILY 01/22/17 03/13/17 Metoprolol Tartrate 12.5 mg PO DAILY 01/22/17 03/13/17 Cyclobenzaprine [Flexeril] 10 mg PO TID PRN #20 tablet 03/13/17 HYDROcod/ACETAM 5/325 [[place] 5/325] 1 ea PO Q6H PRN #10 tablet 03/13/17 Lidocaine Patch 5% [Lidoderm Patch] 1 each TOP DAILY PRN #10 patch 03/13/17 Hydrocortisone Acetate [Anucort-Hc] 25 mg RC DAILY #5 supp.rect 12/18/18 Ibuprofen [Motrin] 800 mg PO Q8H PRN #30 tablet 04/18/19 predniSONE [Prednisone] 40 mg PO DAILY #10 tablet 04/18/19 - Allergies Allergies/Adverse Reactions: Allergies Allergy/AdvReac Type Severity Reaction Status Date / Time No Known Drug Allergies Allergy Verified 04/18/19 09:55 - Social History Does the pt smoke?: No Smoking Status: Never smoker Does the pt drink ETOH?: Yes Does the pt have substance abuse?: No - Immunizations Immunizations are current?: Yes - POLST Patient has POLST: No POLST Status: Full Code PD ED PE NORMAL - Vitals Vital signs reviewed: Yes - General General: Alert and oriented X 3, No acute distress, Well developed/nourished - HEENT HEENT: PERRL, Moist mucous membranes - Neck Neck: Supple, no meningeal sign, No bony TTP - Cardiac Cardiac: RRR - Respiratory Respiratory: No respiratory distress, Clear bilaterally - Back Back: No spinal TTP - Derm Derm: Warm and dry - Extremities Extremities: No deformity, Normal ROM s pain, Other (Normal examination of the bilateral upper extremities. Including all joints.) - Neuro Neuro: Alert and oriented X 3, aviation project manager 2-12 intact, No motor deficit, No sensory deficit, Normal speech - Psych Psych: Normal mood, Normal affect Results - Vitals Vitals: Oxygen O2 Source Room air PD MEDICAL DECISION MAKING - ED course Complexity details: considered differential, d/w patient ED course: Patient with what appears to be cervical radiculopathy. Will trial on steroids and anti-inflammatories. We will have him follow-up with his doctor for further care. Patient counseled regarding signs and symptoms for which I believe and urgent re-evaluation would be necessary. Patient with good understanding of and agreement to plan and is comfortable going home at this time This document was made in part using voice recognition software. While efforts are made to proofread this document, sound alike and grammatical errors may occur. Departure - Departure Disposition: 01 Home, Self Care Clinical Impression: Cervical radiculopathy Condition: Good Instructions: ED Cervical Radiculopathy Follow-Up: South Patel PA-C [Primary Care Provider] - Prescriptions: Ibuprofen [Motrin] 800 mg PO Q8H PRN #30 tablet PRN Reason: PAIN &/OR FEVER predniSONE [Prednisone] 40 mg PO DAILY #10 tablet Comments: Return if you worsen. This should improve over the next week. Follow up with your doctor from further care. Discharge Date/Time: 04/18/19 11:04
[2019-04-18 11:04] VITALS: BP 127/80
== END 2019-04-18 11:04 | disposition home or self-care (01) ==
LOC: ED 09:47
DX: M54.12 Radiculopathy, cervical region (principal); I10 Essential (primary) hypertension; Z79.02 Long term (current) use of antithrombotics/antiplatelets
CPT/HCPCS: 99282; 99284; A9270; J7512

== ENCOUNTER 2019-05-15 07:48 | Outpatient (CLI) | payer MEDICAID ==
--- NOTE | 2019-05-15 09:36 | MRI Report ---
Reason: CERVICAL RADICULOPATHY Procedure Date: 05/15/2019 Accession Number: [id number] / [id number] Procedure: MRI - Cervical Spine W/O CPT Code: Final Report FULL RESULT: EXAM: MRI CERVICAL SPINE WITHOUT CONTRAST EXAM DATE: 05/15/2019 08:18 AM. CLINICAL HISTORY: Cervical radiculopathy. Numbness for the past 3 weeks right thumb and index fingers. COMPARISONS: None. TECHNIQUE: Multiplanar, multisequence T1-weighted and fluid-sensitive sequences of the cervical spine without contrast. Other: None. FINDINGS: In the left thyroid lobe note is made of an 8 mm T2 hyperintense focus. No suspicious marrow replacement is present in the cervical vertebral bodies. No abnormal signal is seen in the cervical spinal cord. Minimal grade 1 retrolisthesis of C3 relative to C4 and C4 relative to C5 is present. Mild loss of disk space height is seen at C5-C6. Anterior disk protrusion osteophyte formation is seen most evident from C4-C6. C2-C3: No posterior disk protrusion. C3-C4: A mild posterior disk protrusion is seen. Bilateral uncovertebral joint spurring is seen. Bilateral foraminal narrowing. Central canal measures 9 mm. There is near complete effacement of the ventral CSF space. C4-C5: Disk/osteophyte complex formation is seen involving the posterior lateral margins of the disk bilaterally much greater on the right relative to the left. Bilateral uncovertebral joint spurring is seen. Moderate right foraminal stenosis is present. There is narrowing of the ventral CSF space. C5-C6: A moderate posterior disk protrusion is seen in the right paracentral region. This is superimposed on a broad-based posterior disk protrusion. There is mass effect on the right ventral cervical spinal cord. Disk/osteophyte complex formation is seen involving the posterior lateral margin of the disk. There is bilateral uncovertebral joint spurring. Moderate to severe bilateral foraminal stenosis is present. C6-C7: A mild broad-based posterior disk protrusion is seen. Disk/osteophyte complex formation is seen involving the posterior lateral and foraminal margins of the disk bilaterally. Bilateral uncovertebral joint spurring is seen. Moderate left and moderate to severe right foraminal stenosis is present. There is narrowing of the ventral CSF space. C7-T1: No posterior disk protrusion is seen. Posterior bulging annulus is present. IMPRESSION: 1. Degenerative disk disease is seen from C3-C7 and there is scattered uncovertebral joint spurring. 2. Disk/osteophyte complex formation is seen at scattered levels most evident at C5-C6 and C6-C7 involving the posterior lateral margin of disk. 3. There is mild central canal stenosis at C5-C6. The central canal is borderline at C6-C7, C4-C5 and C3-C4. 4. Multilevel foraminal stenosis seen. This is greatest bilaterally at C5-C6 and C6-C7. 5. No abnormal signal is seen in the cervical spinal cord. 6. A less than 1 cm thyroid nodule is present on the left. MRI cannot distinguish benign from malignant thyroid disease. [facility]
== END 2019-05-15 07:49 | disposition home or self-care (01) ==
LOC: DI 07:48
PROVIDERS: ATTEND Physician Assistant Medical
DX: M50.21 Other cervical disc displacement, high cervical region (principal); M50.31 Other cervical disc degeneration, high cervical region; M48.02 Spinal stenosis, cervical region; M47.812 Spondylosis without myelopathy or radiculopathy, cervical region; E04.1 Nontoxic single thyroid nodule; M43.12 Spondylolisthesis, cervical region
CPT/HCPCS: 72141

== ENCOUNTER 2019-05-22 13:53 | Outpatient (CLI) | payer MEDICAID ==
[2019-05-22 18:37] LABS: BASOPHILS % (AUTO) 0.5 %; EOSINOPHILS % (AUTO) 0.4 %; HGB - HEMOGLOBIN 13.8 g/dL (14.0-18.0); LYMPHOCYTES # (AUTO) 1.7 10^3/uL (1.5-3.5); LYMPHOCYTES % (AUTO) 20.7 %; MEAN CORPUSCULAR HEMOGLOBIN 29.9 pg (27.0-31.0); MEAN CORPUSCULAR VOLUME 93.3 fL (80.0-94.0); MEAN PLATELET VOLUME 10.6 fL (7.4-11.4); MONOCYTES # (AUTO) 0.7 10^3/uL (0.0-1.0); MONOCYTES % (AUTO) 7.8 %; NEUTROPHILS # (AUTO) 5.9 10^3/uL (1.5-6.6); PLT - PLATELET COUNT 287 10^3/uL (130-450); RED BLOOD COUNT 4.62 10^6/uL (4.70-6.10); RED CELL DISTRIBUTION WIDTH 13.8 % (12.0-15.0); WHITE BLOOD COUNT 8.4 x10^3/uL (4.8-10.8)
[2019-05-22 18:54] LABS: CALCIUM 9.1 mg/dL (8.5-10.3); CREATININE 1.2 mg/dL (0.6-1.2)
[2019-05-22 19:05] LABS: THYROID STIMULATING HORMONE 0.54 uIU/mL (0.34-5.60)
[2019-05-22 19:07] LABS: FREE T4 (FREE THYROXINE) 0.76 ng/dL (0.58-1.64)
== END 2019-05-22 23:59 | disposition home or self-care (01) ==
LOC: LAB.N 13:53
PROVIDERS: ATTEND Physician Assistant Medical
DX: E04.1 Nontoxic single thyroid nodule (principal)
CPT/HCPCS: 36415; 80048; 84439; 84443; 84481; 85025; 86376; 86800

== ENCOUNTER 2019-06-04 09:37 | Outpatient (CLI) | payer MEDICAID ==
--- NOTE | 2019-06-04 15:45 | Ultrasound Report ---
Reason: LT THYROID NODULE Procedure Date: 06/04/2019 Accession Number: [id number] / [id number] Procedure: US - Head or Neck Soft Tissue CPT Code: Final Report FULL RESULT: EXAM: THYROID ULTRASOUND EXAM DATE: 06/04/2019 10:08 AM. CLINICAL HISTORY: LT THYROID NODULE. COMPARISON: None. TECHNIQUE: Real time sonographic imaging of the thyroid was performed by the drum attendant. Multiple field representatives director static images were saved for review. FINDINGS: THYROID GLAND: Right Lobe: 4.8 x 1.2 x 1.7 cm, volume 5.1 cc. Normal background echotexture. Right Lobe Nodules: 0.4 x 0.3 x 0.4 cm solid hypoechoic midpole nodule. Left Lobe: 4.9 x 1.2 x 1.6 cm, volume 4.9 cc. Normal background echotexture. Left Lobe Nodules: 0.6 x 0.5 x 0.6 cm isoechoic solid nodule. Isthmus: 0.3 cm AP. Isthmic Nodules: None. LYMPH NODES: No adenopathy demonstrated in the central or lateral compartment. OTHER: None. IMPRESSION: Subcentimeter solid-appearing nodules do not meet criteria for tissue sampling at this time. Management recommendations are based on 2015 [place] [employer] Management Guidelines for Adult Patients with Thyroid Nodules and Differentiated Thyroid Cancer. [facility]IA
== END 2019-06-04 09:38 | disposition home or self-care (01) ==
LOC: DI 09:37
PROVIDERS: ATTEND Physician Assistant Medical
DX: E04.2 Nontoxic multinodular goiter (principal)
CPT/HCPCS: 76536

== ENCOUNTER 2020-01-14 11:18 | Emergency (ER) | payer MEDICAID ==
[2020-01-14] MEDS ORDERED: CHERRY SYRUP 10 ML UDC PO ONE (13:06)
[2020-01-14] MEDS ORDERED: DEXAMETHASONE 10 MG/ML VIAL PO STA (13:06)
--- NOTE | 2020-01-14 13:08 | ED Physician Documentation ---
History of Present Illness - Stated complaint Stated Complaint: ALLERGIC REACTION - Chief complaint Chief Complaint: Allergic Rx - History of Present Illness Timing: Prior to arrival, How many days ago (3) - Additonal information Additional information: 49-year-old male presents to the emergency department with chin swelling, erythema and copious amount of serous drainage. This occurred 3 days ago after he applied a natural hair dye to his chin to remove the [place] hair. He had a similar reaction with a just for [employer] product about 6 years ago. He reports he left this natural product in place for about 3 minutes and then rinsed it off. A few hours later he began to feel a tingling and burning in his chin. It was then followed by some vesicular eruptions and copious serous drainage. He has had no fevers. He has no trismus. He is able to swallow and phonate normally. Review of Systems Constitutional: denies: Fever, Chills Throat: reports: Dental pain / toothache, Oral lesions / sores, Sore throat, Swollen tonsils, Other (normal swallow and phonation) Cardiac: denies: Chest pain / pressure, Palpitations Respiratory: denies: Dyspnea, Cough GI: denies: Abdominal Pain Skin: reports: Lesions (chin dermatitis) PD PAST MEDICAL HISTORY - Past Medical History Cardiovascular: Hypertension, High cholesterol, Coronary artery disease, [place] Respiratory: None Endocrine/Autoimmune: None GI: GERD, Ulcers, Other : None HEENT: None Psych: None Musculoskeletal: None Derm: None - Past Surgical History Past Surgical History: No General: Other Cardiovascular: Coronary stent, Other - Present Medications Home Medications: Ambulatory Orders Medication Instructions Recorded Confirmed Atorvastatin Calcium [Lipitor] 40 mg PO DAILY 01/22/17 03/13/17 Metoprolol Tartrate 12.5 mg PO DAILY 01/22/17 03/13/17 Aspirin 01/14/20 Cephalexin [Keflex] 500 mg PO Q6H #28 capsule 01/14/20 Mupirocin [Centany] 30 gm TP TID #1 oint...g. 01/14/20 - Allergies Allergies/Adverse Reactions: Allergies Allergy/AdvReac Type Severity Reaction Status Date / Time No Known Drug Allergies Allergy Verified 01/14/20 11:23 - Social History Does the pt smoke?: No Smoking Status: Never smoker Does the pt drink ETOH?: Yes Does the pt have substance abuse?: No - Immunizations Immunizations are current?: Yes - POLST Patient has POLST: No POLST Status: Full Code PD ED PE NORMAL - General General: Alert and oriented X 3, No acute distress - HEENT HEENT: PERRL - Neck Neck: Supple, no meningeal sign, No bony TTP, No adenopathy, Thyroid normal, Other (normal swallow and phonation) - Cardiac Cardiac: RRR, No murmur - Respiratory Respiratory: No respiratory distress - Abdomen Abdomen: Normal bowel sounds - Derm Derm: Other (Swelling erythema and vesicular eruption on his chin. Copious amount of serous drainage) Results - Vitals Vitals: Vital Signs - 24 hr 01/14/20 11:23 Temperature 36.5 C Heart Rate 116 H Respiratory 16 Rate Blood Pressure 180/100 H O2 Saturation 96 Oxygen O2 Source Room air PD MEDICAL DECISION MAKING - ED course Complexity details: d/w patient ED course: 49-year-old male here with a likely chemical dermatitis to his chin after applying a hair dye remedy approximately 3 to 4 days ago. He has had similar reaction in the past. I suspect that at this point he has an infection in the denuded skin. I will give him a one-time dose of Decadron for inflammation here in the emergency department and discharge him with a prescription of Keflex. I have also advised frequent application of antibiotic ointment. He is to avoid any further hair dye application in the future. At this time he has no concerns of airway involvement or difficulty with swallow or phonation. Return precautions discussed for worsening symptoms Departure - Departure Disposition: 01 Home, Self Care Clinical Impression: Chemical induced allergic contact dermatitis Cellulitis Qualifiers: Site of cellulitis: face Qualified Code(s): L03.211 - Cellulitis of face Condition: Stable Instructions: ED Dermatitis Contact Ch, ED Cellulitis Ch Prescriptions: Mupirocin [Centany] 30 gm TP TID #1 oint...g. Cephalexin [Keflex] 500 mg PO Q6H #28 capsule Comments: Lyn it looks like you have a dermatitis or inflammation of your chin from the hair dye. However it also appears that you have developed a secondary infection in this area. We have given you a one-time dose of a steroid in the emergency department which should help with swelling. However I do want you to take the oral antibiotics as prescribed. I have also prescribed an antibiotic ointment for you to apply liberally over the chin until the swelling and drainage begins to resolve. Wash the area 2-3 times a day with a hypoallergenic soap. Pat dry and then apply the antibiotic ointment Avoid any further's hair dye application. Return to the emergency department if you find that your swelling and drainage is not improving over the next 48 to 72 hours.
[2020-01-14 13:24] VITALS: BP 153/94
== END 2020-01-14 13:24 | disposition home or self-care (01) ==
LOC: ED 11:18
DX: T49.4X1A Poisoning by keratolytics, keratoplastics, and other hair treatment drugs and preparations, accidental (unintentional), initial encounter (principal); L23.5 Allergic contact dermatitis due to other chemical products; Y93.E8 Activity, other personal hygiene; L03.211 Cellulitis of face; I10 Essential (primary) hypertension; Z79.82 Long term (current) use of aspirin
CPT/HCPCS: 99282; 99284; A9270

== ENCOUNTER 2020-03-11 08:00 | Outpatient (CLI) | payer MEDICAID ==
[2020-03-11 18:37] LABS: BASOPHILS % (AUTO) 0.4 %; EOSINOPHILS % (AUTO) 0.4 %; HGB - HEMOGLOBIN 14.2 g/dL (14.0-18.0); LYMPHOCYTES # (AUTO) 1.6 10^3/uL (1.5-3.5); LYMPHOCYTES % (AUTO) 21.1 %; MEAN CORPUSCULAR HEMOGLOBIN 30.4 pg (27.0-31.0); MEAN CORPUSCULAR HGB CONC 32.7 g/dL (32.0-36.0); MEAN CORPUSCULAR VOLUME 92.9 fL (80.0-94.0); MONOCYTES # (AUTO) 0.6 10^3/uL (0.0-1.0); MONOCYTES % (AUTO) 7.5 %; NEUTROPHILS # (AUTO) 5.4 10^3/uL (1.5-6.6); PLT - PLATELET COUNT 235 10^3/uL (130-450); RED BLOOD COUNT 4.67 10^6/uL (4.70-6.10); RED CELL DISTRIBUTION WIDTH 13.6 % (12.0-15.0); WHITE BLOOD COUNT 7.8 x10^3/uL (4.8-10.8)
[2020-03-11 19:11] LABS: ALBUMIN 4.3 g/dL (3.2-5.5); ALBUMIN/GLOBULIN RATIO 1.4 (1.0-2.2); ALKALINE PHOSPHATASE 88 IU/L (42-121); ALT ALANINE AMINOTRANSFERASE 32 IU/L (10-60); AST ASPARTATE AMINOTRANSFERASE 32 IU/L (10-42); BUN - BLOOD UREA NITROGEN 12 mg/dL (6-20); CALCIUM 9.5 mg/dL (8.5-10.3); CARBON DIOXIDE - CO2 25 mmol/L (21-32); CHLORIDE 107 mmol/L (101-111); CHOLESTEROL 146 mg/dL; CREATININE 1.3 mg/dL (0.6-1.2); GLUCOSE 114 mg/dL (70-100); HDL CHOLESTEROL 49 mg/dL; LDL CHOLESTEROL,CALCULATED 81 mg/dL; LDL/HDL RATIO 1.7 (<3.6); SODIUM 139 mmol/L (135-145); TOTAL PROTEIN 7.4 g/dL (6.7-8.2); VLDL CHOLESTEROL 16 mg/dL
[2020-03-11 19:40] LABS: CRP - C-REACTIVE PROTEIN < 1.0 mg/dL (0-1.0)
[2020-03-11 20:06] LABS: HEMOGLOBIN A1c% 6.9 % (4.27-6.07)
== END 2020-03-11 08:01 | disposition home or self-care (01) ==
LOC: LAB.WCP 08:00
PROVIDERS: ATTEND Family Medicine
DX: L29.9 Pruritus, unspecified (principal); R73.01 Impaired fasting glucose; E04.1 Nontoxic single thyroid nodule; I10 Essential (primary) hypertension; E78.5 Hyperlipidemia, unspecified
CPT/HCPCS: 36415; 80053; 80061; 83036; 83721; 84443; 85025; 85651; 86140

== ENCOUNTER 2020-11-09 08:00 | Outpatient (CLI) | payer MEDICAID ==
[2020-11-09 12:17] LABS: BASOPHILS # (AUTO) 0.1 10^3/uL (0.0-0.1); BASOPHILS % (AUTO) 0.6 %; EOSINOPHILS # (AUTO) 0.1 10^3/uL (0.0-0.7); EOSINOPHILS % (AUTO) 0.5 %; HCT - HEMATOCRIT 43.5 % (42.0-52.0); HGB - HEMOGLOBIN 13.6 g/dL (14.0-18.0); LYMPHOCYTES # (AUTO) 1.8 10^3/uL (1.5-3.5); LYMPHOCYTES % (AUTO) 18.9 %; MEAN CORPUSCULAR HEMOGLOBIN 29.2 pg (27.0-31.0); MEAN CORPUSCULAR HGB CONC 31.3 g/dL (32.0-36.0); MEAN CORPUSCULAR VOLUME 93.3 fL (80.0-94.0); MEAN PLATELET VOLUME 10.7 fL (7.4-11.4); MONOCYTES # (AUTO) 0.7 10^3/uL (0.0-1.0); MONOCYTES % (AUTO) 7.2 %; NEUTROPHILS % (AUTO) 72.3 %; PLT - PLATELET COUNT 291 10^3/uL (130-450); RED BLOOD COUNT 4.66 10^6/uL (4.70-6.10); RED CELL DISTRIBUTION WIDTH 13.5 % (12.0-15.0); WHITE BLOOD COUNT 9.7 x10^3/uL (4.8-10.8)
[2020-11-09 12:39] LABS: ALBUMIN 4.7 g/dL (3.2-5.5); ALBUMIN/GLOBULIN RATIO 1.6 (1.0-2.2); ALKALINE PHOSPHATASE 97 IU/L (42-121); ALT ALANINE AMINOTRANSFERASE 27 IU/L (10-60); AST ASPARTATE AMINOTRANSFERASE 28 IU/L (10-42); BILIRUBIN,TOTAL 1.4 mg/dL (0.2-1.0); BUN - BLOOD UREA NITROGEN 10 mg/dL (6-20); CALCIUM 9.6 mg/dL (8.5-10.3); CARBON DIOXIDE - CO2 25 mmol/L (21-32); CHLORIDE 105 mmol/L (101-111); CHOL/HDL RATIO 2.5 (<5.0); CHOLESTEROL 104 mg/dL; GFR - MDRD 95 (>89); GLUCOSE 119 mg/dL (70-100); HDL CHOLESTEROL 41 mg/dL; LDL CHOLESTEROL,CALCULATED 52 mg/dL; LDL/HDL RATIO 1.3 (<3.6); POTASSIUM 4.4 mmol/L (3.5-5.0); SODIUM 140 mmol/L (135-145); TOTAL PROTEIN 7.6 g/dL (6.7-8.2); TRIGLYCERIDES 55 mg/dL; VLDL CHOLESTEROL 11 mg/dL
[2020-11-09 12:43] LABS: ESTIMATED AVERAGE GLUCOSE 134 mg/dL (70-100); HEMOGLOBIN A1c% 6.3 % (4.27-6.07)
[2020-11-09 12:44] LABS: THYROID STIMULATING HORMONE 1.12 uIU/mL (0.34-5.60)
[2020-11-09 12:48] LABS: CREATININE,URINE 132.8 mg/dL; MICROALBUM/CREATININE RATIO,UR 17.3 ug/mg (<30.0); MICROALBUMIN,URINE 2.3 mg/dL (0-300.0)
== END 2020-11-09 23:59 | disposition home or self-care (01) ==
LOC: LAB.WCP 08:00
PROVIDERS: ATTEND Family Medicine
DX: E11.9 Type 2 diabetes mellitus without complications (principal); Z12.5 Encounter for screening for malignant neoplasm of prostate
CPT/HCPCS: 36415; 80053; 80061; 82043; 82570; 83036; 83721; 84153; 84443; 85025

== ENCOUNTER 2021-04-28 08:34 | Outpatient (CLI) | payer MEDICAID ==
[2021-04-28 12:49] LABS: CALCIUM 9.4 mg/dL (8.5-10.3); CREATININE 1.1 mg/dL (0.6-1.2); POTASSIUM 4.4 mmol/L (3.5-5.0)
[2021-04-28 13:13] LABS: CREATININE,URINE 240.8 mg/dL; MICROALBUM/CREATININE RATIO,UR 9.6 ug/mg (<30.0); MICROALBUMIN,URINE 2.3 mg/dL (0-300.0)
[2021-04-28 13:55] LABS: ESTIMATED AVERAGE GLUCOSE 140 mg/dL (70-100); HEMOGLOBIN A1c% 6.5 % (4.27-6.07)
== END 2021-04-28 23:59 | disposition home or self-care (01) ==
LOC: LAB.WCP 08:34
PROVIDERS: ATTEND Family Medicine
DX: E11.9 Type 2 diabetes mellitus without complications (principal); I10 Essential (primary) hypertension
CPT/HCPCS: 36415; 80048; 82043; 82570; 83036

== ENCOUNTER 2021-06-29 11:17 | Emergency (ER) | payer MEDICAID ==
[2021-06-29 11:33] VITALS: BP 112/68
--- NOTE | 2021-06-29 13:26 | ED Physician Documentation ---
History of Present Illness - Stated complaint Stated Complaint: FEVER,BODY ACHES,COUGH - Chief complaint Chief Complaint: Resp - Additonal information Additional information: 51-year-old male who carries a history of hypertension presents the emergency department for evaluation of 5 days cough cold congestion and fevers. His entire family is Covid positive. He is not yet vaccinated. He is here at the behest of his . He denies any significant dyspnea or chest pain. He would like to know what he can take to control the fevers and how long he can expect symptoms to last. Non-smoker. Does not have a history of asthma or COPD. Review of Systems Constitutional: reports: Fever, Myalgias, Fatigue Eyes: reports: Reviewed and negative Ears: reports: Reviewed and negative Nose: reports: Congestion Cardiac: denies: Chest pain / pressure, Palpitations Respiratory: reports: Cough. denies: Dyspnea, Hemoptysis, Wheezing GI: reports: Reviewed and negative : reports: Reviewed and negative Skin: reports: Reviewed and negative PD PAST MEDICAL HISTORY - Past Medical History Past Medical History: Yes Cardiovascular: Hypertension, High cholesterol, Coronary artery disease, [place] Respiratory: None Endocrine/Autoimmune: Type 2 diabetes GI: GERD, Ulcers, Other : None HEENT: None Psych: None Musculoskeletal: None Derm: None - Past Surgical History Past Surgical History: Yes General: Other Cardiovascular: Coronary stent, Other - Present Medications Home Medications: Ambulatory Orders Medication Instructions Recorded Confirmed Atorvastatin Calcium [Lipitor] 40 mg PO DAILY 01/22/17 07/07/20 Metoprolol Tartrate 12.5 mg PO DAILY 01/22/17 07/07/20 Aspirin 81 mg PO DAILY 01/14/20 07/07/20 Mupirocin [Centany] 30 gm TP TID #1 oint...g. 01/14/20 07/07/20 Cetirizine [ZyrTEC] 10 mg PO DAILY #15 tablet 01/24/20 07/07/20 Triamcinolone Acetonide 1 applic TP BID #15 cream..g. 01/24/20 07/07/20 diphenhydrAMINE HCL 25 mg PO Q6H PRN #30 capsule 01/24/20 07/07/20 [Diphenhydramine HCl] metFORMIN [Glucophage] 500 mg PO BIDWM 07/07/20 07/07/20 Albuterol Sulf [Ventolin Hfa 1 - 2 puffs INH Q4HR PRN #1 inhaler 06/29/21 Inhaler] Benzonatate [Tessalon] 200 mg PO TID PRN #20 cap 06/29/21 - Allergies Allergies/Adverse Reactions: Allergies Allergy/AdvReac Type Severity Reaction Status Date / Time No Known Drug Allergies Allergy Verified 06/29/21 11:34 - Social History Does the pt smoke?: No Smoking Status: Never smoker Does the pt drink ETOH?: Yes Does the pt have substance abuse?: No - Immunizations Immunizations are current?: Yes - POLST Patient has POLST: No POLST Status: Full Code PD ED PE NORMAL - General General: Alert and oriented X 3, No acute distress - HEENT HEENT: PERRL - Neck Neck: Supple, no meningeal sign, No adenopathy - Cardiac Cardiac: RRR, No murmur, No gallop - Respiratory Respiratory: No respiratory distress, Clear bilaterally - Abdomen Abdomen: Normal bowel sounds, Soft, Non tender - Back Back: No CVA TTP, No spinal TTP - Derm Derm: Normal color - Extremities Extremities: No deformity, No tenderness to palpate, Normal ROM s pain - Neuro Neuro: Alert and oriented X 3, 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 Eye Opening: Spontaneous Motor: Obeys Commands Verbal: Oriented GCS Score: 15 - Psych Psych: Normal mood Results - Vitals Vitals: Vital Signs - 24 hr 06/29/21 11:28 Temperature 37.3 C Heart Rate 111 H Respiratory 18 Rate Blood Pressure 112/68 O2 Saturation 95 Oxygen O2 Source Room air - Rads (name of study) cxr Radiology: EMP read contemporaneously (No acute cardiopulmonary process.) PD MEDICAL DECISION MAKING - ED course Complexity details: reviewed results, re-evaluated patient, considered differential, d/w patient ED course: 51-year-old male presents emergency department for evaluation of 5 days cough cold congestion and fevers. His family is Covid positive. A Covid screen is pending on him. He has not yet vaccinated. Non-smoker no history of pulmonary disease. Chest x-ray is without acute focal opacity. He had unremarkable cardiopulmonary auscultation and no hypoxia. I have advised patient to continue Tylenol and ibuprofen for fever control. Will send prescription for Tessalon Perles and albuterol to the pharmacy. Emergent return precautions were otherwise discussed for worsening symptoms. Advised to maintain quarantine until test results are known. Departure - Departure Disposition: 01 Home, Self Care Clinical Impression: Encounter for screening for COVID-19 Upper respiratory infection Qualifiers: URI type: unspecified viral URI Qualified Code(s): J06.9 - Acute upper respiratory infection, unspecified Condition: Stable Record reviewed to determine appropriate education?: Yes Instructions: ED Viral Syndrome Ch Prescriptions: Albuterol Sulf [Ventolin Hfa Inhaler] 1 - 2 puffs INH Q4HR PRN #1 inhaler PRN Reason: Shortness Of Air/Wheezing Benzonatate [Tessalon] 200 mg PO TID PRN #20 cap PRN Reason: Cough Comments: Lyn you are seen in the ER today for cough cold fevers and congestion. Your family has tested positive for COVID-19. We assume that you are positive however the test is pending on you. You need to remain in quarantine until the test results are known. I have sent a prescription to the [facility] in [place] for Tessalon Perles to help reduce cough as well as albuterol which can help reduce the frequency of cough. In general those that are suspected to have COVID-19 should sleep on their stomach since it helps improve aeration in the posterior lung calderon. You can continue to take Tylenol and ibuprofen vxre-maj-ktxzuhl for fevers and body aches. Your chest x-ray does not show a pneumonia. If at any point you feel that your symptoms are worsening, you have oxygen levels less than 92%, severe shortness of air or chest pain then please return immediately to the ER for second evaluation I do recommend that you receive the COVID-19 vaccination. You can receive this 90 days after a Covid infection. You have a Covid test pending. You need to self quarantine until the result is done and negative. Do not leave your house. Do not get near anybody. The results should be done in 48 to 72 hours. We will call with a positive result, the fastest way to get a negative result for confirmation though is to go to the hospital website at [email or web address], click on the my [employer] tab and sign up for the patient portal. If any friends or family get sick and would like to have a Covid test done, but do not have signs or symptoms that would necessitate being hospitalized, there are multiple local options for Covid testing. [facility] keeps an updated list of testing and vaccination options at [email or web address]
--- NOTE | 2021-06-29 13:56 | XRAY Report ---
PROCEDURE: Chest 1 View X-Ray INDICATIONS: chest pain TECHNIQUE: One view of the chest was acquired. COMPARISON: 03/13/2017. FINDINGS: Surgical changes and devices: None. Lungs and pleura: No pleural effusions or pneumothorax. Bilaterally increased bronchovascular markin gs in bilateral hilar region are seen with mild bronchial wall thickening. No focal infiltrate. Mediastinum: Mediastinal contours appear normal. Heart size is normal. Bones and chest wall: No suspicious bony lesions. Overlying soft tissues appear unremarkable. IMPRESSION: Finding may represent mild reactive airway disease versus viral illness. No focal infiltrate, pleural effusion or pneumothorax. Reviewed by: Mateus Davis MD on 06/29/2021 1:54 PM PST Approved by: Mateus Davis MD on 06/29/2021 1:54 PM PST Station ID: [id number]
== END 2021-06-29 14:30 | disposition home or self-care (01) ==
LOC: ED 11:17
DX: U07.1 COVID-19 (principal)
CPT/HCPCS: 99283; 99284

== ENCOUNTER 2021-07-22 13:59 | Outpatient (CLI) | payer MEDICAID ==
[2021-07-22 14:15] LABS: HGB - HEMOGLOBIN 12.6 g/dL (14.0-18.0); MEAN CORPUSCULAR HEMOGLOBIN 29.6 pg (27.0-31.0); MEAN CORPUSCULAR HGB CONC 32.3 g/dL (32.0-36.0); MEAN CORPUSCULAR VOLUME 91.8 fL (80.0-94.0); MEAN PLATELET VOLUME 9.9 fL (7.4-11.4); RED BLOOD COUNT 4.25 10^6/uL (4.70-6.10); RED CELL DISTRIBUTION WIDTH 13.5 % (12.0-15.0); WHITE BLOOD COUNT 7.6 x10^3/uL (4.8-10.8)
[2021-07-22 14:27] LABS: CALCIUM 8.9 mg/dL (8.5-10.3); POTASSIUM 3.9 mmol/L (3.5-5.0)
== END 2021-07-22 14:00 | disposition home or self-care (01) ==
LOC: LAB 13:59
PROVIDERS: ATTEND Family Medicine
DX: R06.09 Other forms of dyspnea (principal)
CPT/HCPCS: 36415; 80048; 83880; 84484; 85027

== ENCOUNTER 2021-12-02 21:29 | Emergency (ER) | payer MEDICAID ==
--- NOTE | 2021-12-02 22:29 | ED Physician Documentation ---
PD HPI NECK PAIN - Stated complaint Stated Complaint: NECK PX - Chief complaint Chief Complaint: Ext Problem - History obtained from History obtained from: Patient - History of Present Illness Timing - onset: How many days ago (2) Timing - details: Gradual onset Pain level now: 8 Location: Mid, Lower, Right Quality: Pain, Spasm Associated symptoms: No: Fever, Weakness, Numbness Improves with: Rest, Position Worsened by: Movement, Palpation Similar symptoms before: Has not had sx before, Other (has had cervical radiculopathy ([facility]), but previous visits for this were left- sided) Recently seen: Not recently seen - Additional information Additional information: c/o 2 days of rapid onset , gradually progressive right-sided neck pain. It is distinctly worse with movement. The pain does not radiate. described as "pressure" and pain. He says he also has an episodic muscle spasm component. Denies injury. Denies h/o similar symptoms (has had left-sided cervical radiculopathy but this is right sided and limited to the neck) Review of Systems Constitutional: reports: Reviewed and negative Eyes: denies: Loss of vision, Decreased vision Cardiac: reports: Reviewed and negative : denies: Incontinent Skin: denies: Rash Musculoskeletal: reports: Neck pain Neurologic: denies: Focal weakness, Numbness, Headache PD PAST MEDICAL HISTORY - Past Medical History Cardiovascular: Hypertension, High cholesterol, Coronary artery disease, [place] Respiratory: None Endocrine/Autoimmune: Type 2 diabetes GI: GERD, Ulcers, Other : None HEENT: None Psych: None Musculoskeletal: None Derm: None - Past Surgical History Past Surgical History: Yes General: Other Cardiovascular: Coronary stent, Other - Present Medications Home Medications: Ambulatory Orders Medication Instructions Recorded Confirmed Atorvastatin Calcium [Lipitor] 40 mg PO DAILY 01/22/17 07/07/20 Metoprolol Tartrate 12.5 mg PO DAILY 01/22/17 07/07/20 Aspirin 81 mg PO DAILY 01/14/20 07/07/20 Mupirocin [Centany] 30 gm TP TID #1 oint...g. 01/14/20 07/07/20 Cetirizine [ZyrTEC] 10 mg PO DAILY #15 tablet 01/24/20 07/07/20 Triamcinolone Acetonide 1 applic TP BID #15 cream..g. 01/24/20 07/07/20 diphenhydrAMINE HCL 25 mg PO Q6H PRN #30 capsule 01/24/20 07/07/20 [Diphenhydramine HCl] metFORMIN [Glucophage] 500 mg PO BIDWM 07/07/20 07/07/20 Albuterol Sulf [Ventolin Hfa 1 - 2 puffs INH Q4HR PRN #1 inhaler 06/29/21 Inhaler] Benzonatate [Tessalon] 200 mg PO TID PRN #20 cap 06/29/21 HYDROcod/ACETAM 5/325 [[place] 5/325] 1 - 2 tablet PO Q6H PRN #14 tablet 12/02/21 diazePAM [Valium] 5 mg PO TID PRN #14 tablet 12/02/21 Cyclobenzaprine [Flexeril] 10 mg PO TID PRN #20 tablet 12/03/21 oxyCODONE [Roxicodone] 5 - 10 mg PO Q6H PRN #20 tablet 12/03/21 predniSONE [Deltasone] 40 mg PO DAILY 4 Days #8 tablet 12/03/21 - Allergies Allergies/Adverse Reactions: Allergies Allergy/AdvReac Type Severity Reaction Status Date / Time No Known Drug Allergies Allergy Verified 12/03/21 21:11 - Social History Does the pt smoke?: No Smoking Status: Never smoker Does the pt drink ETOH?: Yes Does the pt have substance abuse?: No - Immunizations Immunizations are current?: Yes - POLST Patient has POLST: No POLST Status: Full Code PD ED PE NORMAL - Vitals Vital signs reviewed: Yes - General General: Alert and oriented X 3, Well developed/nourished, Other (appears to be in painful discomfort, worse with movement or palpation of neck) - Neck Neck: No adenopathy, Thyroid normal, Other (patient has a very wide and thick neck; no visible nor palpable evidence of infection or abscess. there is TTP right posterolateral aspect) - Cardiac Cardiac: RRR, No murmur - Respiratory Respiratory: No respiratory distress, Clear bilaterally - Back Back: No spinal TTP - Derm Derm: Normal color, No rash - Neuro Neuro: Alert and oriented X 3, right of way supervisor 2-12 intact, No motor deficit, No sensory deficit, Normal speech Results - Vitals Vitals: Oxygen O2 Source Room air PD MEDICAL DECISION MAKING - ED course Complexity details: reviewed old records, considered differential, d/w patient ED course: Atraumatic right-sided neck pain that is distinctly worse with movement. No elements of HPI, ROS, PE to suggest other than a musculoskeletal etiology. Without red flags such as fever or weakness, emergent studies including imaging not indicated at this time. Will treat conservatively, with rest and prescription analgesia. Patient is comfortable with this plan. He is given doses in ED and prescriptions sent to his pharmacy of his choice. I recommended he stay in ED to see if the medication would effectively control his symptoms but he wants to leave shortly after receiving the medications (he is being driven home and he does not want to make his ride wait). I am prescribing a short course of short-acting opioid pain medication for this patient. 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 I have discussed that the opioids are for short term therapy only, and will not be refilled from the ED Departure - Departure Disposition: 01 Home, Self Care Clinical Impression: Neck pain Condition: Good Instructions: ED Neck Pain No Trauma, ED Spasm Neck No Injury Prescriptions: HYDROcod/ACETAM 5/325 [[place] 5/325] 1 - 2 tablet PO Q6H PRN #14 tablet PRN Reason: Pain diazePAM [Valium] 5 mg PO TID PRN #14 tablet PRN Reason: Spasms Comments: Prescriptions for diazepam (valium, which can be used to relieve muscle spasm) and hydrocodone/acteaminophen (vicodin, narcotic pain medication) have been electronically submitted to [facility] pharmacy in [place]. Follow up with your primary care provider in 4-5 days for reevaluation. I am prescribing a short course of narcotic pain medication for you. These are potentially dangerous and addictive medications that should be used carefully. These medications may constipate you. Take an xezg-vjb-ctfswmj stool softener (docusate) twice daily with plenty of water while taking these medications. If you go 24 hours without a bowel movement, take qwal-abp-wrbzwby miralax, per package instructions. Do not drink or drive while taking these medications. If you received narcotic or sedating medications while in the emergency department, do not drive for 24 hours. Store this medication in a safe, secure place and out of reach of children. It is a violation of federal law to give or sell this medication to another person or to use in a manner other than prescribed. The ED will not refill narcotic prescriptions, including prescriptions lost or stolen. To dispose of unwanted medications: 1. [facility] at [address] in [place] has a medication drop box. They accept prescription medications (in pill form) Monday through Monday 9:00 a.m. to 5:00 p.m. 2. The [facility] accepts prescription medications (in pill form only) for disposal year round. Call for more information. 3. Contact the [facility] for the next [facility] sponsored prescription drug collection event. , [phone], or [phone]; Discharge Date/Time: 12/02/21 23:17
[2021-12-02] MEDS ORDERED: HYDROcod/ACET 5/325 Prepack 4 PO STA (22:46)
[2021-12-02] MEDS ORDERED: diazePAM 5 MG TABLET PO STA (22:47)
[2021-12-02 23:19] VITALS: BP 154/92
== END 2021-12-02 23:17 | disposition home or self-care (01) ==
LOC: ED 21:29
DX: M54.2 Cervicalgia (principal); I10 Essential (primary) hypertension; E11.9 Type 2 diabetes mellitus without complications; Z79.84 Long term (current) use of oral hypoglycemic drugs
CPT/HCPCS: 99282; A9270

== ENCOUNTER 2021-12-03 21:01 | Emergency (ER) | payer MEDICAID ==
--- NOTE | 2021-12-03 21:25 | ED Physician Documentation ---
PD HPI NECK PAIN - Stated complaint Stated Complaint: NECK PX - Chief complaint Chief Complaint: Heent - History obtained from History obtained from: Patient - History of Present Illness Timing - onset: How many days ago (3) Pain level now: 10 Location: Right Quality: Pain, Spasm Associated symptoms: No: Fever, Weakness, Numbness, Incontinent of urine, Unable to urinate Improves with: Rest, Position Worsened by: Movement, Palpation Contributing factors: No: Cancer Similar symptoms before: No diagnosis Recently seen: Emergency Dept - Additional information Additional information: T+R yesterday (by me) for same symptoms .He c/o 2-3 days of right-sided neck pain, atraumatic, distinctly worse with movement involving neck with component of tenderness (worsening with palpation). Denies fever. He has developed a headache since previous visit and says pain is now worse when he swallows. He denies sore throat, no change in voice/phonation. He was prescribed valium and vicodin and he says he has had no relief with these medications. Review of Systems Constitutional: denies: Fever, Chills, Sweats Throat: denies: Sore throat Cardiac: reports: Reviewed and negative Respiratory: reports: Reviewed and negative GI: reports: Reviewed and negative Skin: denies: Rash Musculoskeletal: reports: Neck pain. denies: Back pain Neurologic: denies: Focal weakness, Numbness, Headache PD PAST MEDICAL HISTORY - Past Medical History Cardiovascular: Hypertension, High cholesterol, Coronary artery disease, [place] Respiratory: None Endocrine/Autoimmune: Type 2 diabetes GI: GERD, Ulcers, Other : None HEENT: None Psych: None Musculoskeletal: None Derm: None - Past Surgical History Past Surgical History: Yes General: Other Cardiovascular: Coronary stent, Other - Present Medications Home Medications: Ambulatory Orders Medication Instructions Recorded Confirmed Atorvastatin Calcium [Lipitor] 40 mg PO DAILY 01/22/17 07/07/20 Metoprolol Tartrate 12.5 mg PO DAILY 01/22/17 07/07/20 Aspirin 81 mg PO DAILY 01/14/20 07/07/20 Mupirocin [Centany] 30 gm TP TID #1 oint...g. 01/14/20 07/07/20 Cetirizine [ZyrTEC] 10 mg PO DAILY #15 tablet 01/24/20 07/07/20 Triamcinolone Acetonide 1 applic TP BID #15 cream..g. 01/24/20 07/07/20 diphenhydrAMINE HCL 25 mg PO Q6H PRN #30 capsule 01/24/20 07/07/20 [Diphenhydramine HCl] metFORMIN [Glucophage] 500 mg PO BIDWM 07/07/20 07/07/20 Albuterol Sulf [Ventolin Hfa 1 - 2 puffs INH Q4HR PRN #1 inhaler 06/29/21 Inhaler] Benzonatate [Tessalon] 200 mg PO TID PRN #20 cap 06/29/21 HYDROcod/ACETAM 5/325 [[place] 5/325] 1 - 2 tablet PO Q6H PRN #14 tablet 12/02/21 diazePAM [Valium] 5 mg PO TID PRN #14 tablet 12/02/21 Cyclobenzaprine [Flexeril] 10 mg PO TID PRN #20 tablet 12/03/21 oxyCODONE [Roxicodone] 5 - 10 mg PO Q6H PRN #20 tablet 12/03/21 predniSONE [Deltasone] 40 mg PO DAILY 4 Days #8 tablet 12/03/21 - Allergies Allergies/Adverse Reactions: Allergies Allergy/AdvReac Type Severity Reaction Status Date / Time No Known Drug Allergies Allergy Verified 12/03/21 21:11 - Social History Does the pt smoke?: No Smoking Status: Never smoker Does the pt drink ETOH?: Yes Does the pt have substance abuse?: No - Immunizations Immunizations are current?: Yes - POLST Patient has POLST: No POLST Status: Full Code PD ED PE NORMAL - Vitals Vital signs reviewed: Yes - General General: Alert and oriented X 3, Well developed/nourished, Other (appears to be in moderate painful discomfort. ) - HEENT HEENT: Moist mucous membranes, Pharynx benign, Other (patient has a very thick neck; TTP right posterolateral aspect of neck without crepitus, erythema, abnormal warmth/heat to touch, fluctuance. no mastoid tenderness or erythema) - Neck Neck: Supple, no meningeal sign, No bony TTP, No adenopathy, Thyroid normal, No bruit - Cardiac Cardiac: RRR, No murmur - Respiratory Respiratory: No respiratory distress, Clear bilaterally Results - Vitals Vitals: Oxygen O2 Source Nasal cannula Oxygen Flow Rate 2 - Rads (name of study) CT soft tissue neck Radiology: Prelim report reviewed, See rad report PD MEDICAL DECISION MAKING - ED course Complexity details: reviewed old records, reviewed results, re-evaluated patient, considered differential, d/w patient ED course: Returns for worsening right-sided neck pain, atraumatic and without clinical findings to suggest a diagnosis such as cellulitis, abscess, mastoiditis. Given the worsening pain and limitations of exam based on patient's thick neck, a CT neck (soft tissues) was performed (IV contrast not used due to extreme local, and national, shortage of intravenous contrast). On this non-contrast study there were no abnormalities. The cause of his pain remains unclear at this time. He is given 2mg IM dilaudid with some improvement. I reviewed results of CT with patient , instructed him to return if worse, follow up with his primary ca re provider. Prescriptions for flexeril and percocet transmitted to his pharmacy of choice. He had indicated to me that flexeril had been effective for other muscle spasms in the past but tends to make him very drowsy; this would be a welcomed side-effect at this point (per patient), as he has not had much sleep due to the pain. The percocet is prescribed to be used instead of the vicodin to see if it brings him more effective pain relief. I am prescribing a short course of short-acting opioid pain medication for this patient. 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 I have discussed that the opioids are for short term therapy only, and will not be refilled from the ED Departure - Departure Disposition: 01 Home, Self Care Clinical Impression: Neck pain Condition: Good Instructions: ED Neck Pain No Trauma Prescriptions: predniSONE [Deltasone] 40 mg PO DAILY 4 Days #8 tablet Cyclobenzaprine [Flexeril] 10 mg PO TID PRN #20 tablet PRN Reason: Spasms oxyCODONE [Roxicodone] 5 - 10 mg PO Q6H PRN #20 tablet PRN Reason: Pain Comments: The CT scan of your neck did not have any significant abnormalities and thus the cause of your pain continues to be unclear at this time. You were given a shot of dilaudid in the emergency department and then given prednisone (steroid; this sometimes helps with neck pain), oxycodone (narcotic medication similar to the vicodin prescribed for you yesterday, although most people find the oxycodone to be more effective for pain), and cyclobenzaprine (flexeril, a muscle relaxer). The oxycodone, cyclobenzaprine, and prednisone have all been electronically prescribed to [facility] pharmacy in [place]. Take EITHER the oxycodone OR the hydrocodone/acetaminophen (whichever is more effective in controlling your pain). Take EITHER the cyclobenzaprine OR the valium (whichever is more effective in controlling your muscle spasms). Call your primary care provider Monday to arrange for next available appointment. Please return to the emergence department if your symptoms worsen or if you develop new concerning signs/symptoms (such as fever, difficulty breathing) I am prescribing a short course of narcotic pain medication for you. These are potentially dangerous and addictive medications that should be used carefully. These medications may constipate you. Take an iwzb-tpn-jgzhrrk stool softener (docusate) twice daily with plenty of water while taking these medications. If you go 24 hours without a bowel movement, take iduo-nhy-mpnevsq miralax, per package instructions. Do not drink or drive while taking these medications. If you received narcotic or sedating medications while in the emergency department, do not drive for 24 hours. Store this medication in a safe, secure place and out of reach of children. It is a violation of federal law to give or sell this medication to another person or to use in a manner other than prescribed. The ED will not refill narcotic prescriptions, including prescriptions lost or stolen. To dispose of unwanted medications: 1. [facility] at [address] in [place] has a medication drop box. They accept prescription medications (in pill form) Monday through Monday 9:00 a.m. to 5:00 p.m. 2. The [facility] accepts prescription medications (in pill form only) for disposal year round. Call for more information. 3. Contact the [facility] for the next [facility] sponsored prescription drug collection event. , [phone], or [phone]; Discharge Date/Time: 12/03/21 23:49
[2021-12-03] MEDS ORDERED: HYDROmorphone 1 MG/ML CARPUJECT IM STA (21:38)
--- NOTE | 2021-12-03 23:02 | CT Report ---
PROCEDURE: SOFT TISSUE NECK WO INDICATIONS: left neck pain, atraumatic TECHNIQUE: Non-contrast 3.0 mm axial sections acquired from the sella to the aortic arch. Additiona l oblique axial 3.0 mm sections acquired through the pharynx. 3 mm thick coronal reformats were gene rated. For radiation dose reduction, the following was used: automated exposure control, adjustment of mA and/or kV according to patient size. COMPARISON: MRI cervical spine 05/15/2019.. FINDINGS: Image quality: There is metallic streak artifact from patient's dental hardware. Evaluation is limite d in the absence of intravenous contrast.. Lymph nodes: No lymphadenopathy in the neck by size criteria. Vessels: Non-opacified vessels appear normal in caliber. Neck spaces: There is mild mucosal thickening posteriorly in the right oropharynx. The oropharynx, n asopharynx, and pharynx demonstrate no discrete mucosal lesions. No discrete abscess collection ident ified in the absence of intravenous contrast. The vocal cords, false vocal cords, pyriform sinuses, epiglottis, vallecula, and tongue base all appear normal. Extramucosal spaces appear unremarkable. Glands: The parotid and submandibular glands appear normal, without stones. There are indistinct sm all hypoattenuating nodules within the left thyroid lobe. Miscellaneous: Visualized brain and orbits appear normal. Lung apices appear clear. Superficial so ft tissues appear normal. IMPRESSION: 1. No discrete abscess collection or mucosal lesion identified in the absence of contrast. 2. No high-grade narrowing of the airway. Reviewed by: Trell Luu MD on 12/03/2021 11:00 PM PDT Approved by: Trell Luu MD on 12/03/2021 11:00 PM PDT Station ID: [id number]
[2021-12-03] MEDS ORDERED: predniSONE 20 MG TABLET PO STA (23:31)
[2021-12-03] MEDS ORDERED: CYCLOBENZAPRINE 10 MG TABLET PO STA (23:31)
[2021-12-03] MEDS ORDERED: oxyCODONE 5 MG TABLET PO STA (23:31)
[2021-12-03 23:51] VITALS: BP 146/82
== END 2021-12-03 23:49 | disposition home or self-care (01) ==
LOC: ED 21:01
DX: M54.2 Cervicalgia (principal); I10 Essential (primary) hypertension; E11.9 Type 2 diabetes mellitus without complications; Z79.84 Long term (current) use of oral hypoglycemic drugs
CPT/HCPCS: 70490; 96372; 99284; A9270; J1170; J7512

== ENCOUNTER 2022-08-09 08:40 | Outpatient (CLI) | payer MEDICAID ==
[2022-08-09 11:51] LABS: BASOPHILS # (AUTO) 0.1 10^3/uL (0.0-0.1); BASOPHILS % (AUTO) 0.6 %; EOSINOPHILS # (AUTO) 0.1 10^3/uL (0.0-0.7); EOSINOPHILS % (AUTO) 0.8 %; HCT - HEMATOCRIT 45.2 % (42.0-52.0); HGB - HEMOGLOBIN 14.6 g/dL (14.0-18.0); LYMPHOCYTES # (AUTO) 1.8 10^3/uL (1.5-3.5); LYMPHOCYTES % (AUTO) 22.8 %; MEAN CORPUSCULAR HEMOGLOBIN 29.7 pg (27.0-31.0); MEAN CORPUSCULAR HGB CONC 32.3 g/dL (32.0-36.0); MEAN CORPUSCULAR VOLUME 91.9 fL (80.0-94.0); MEAN PLATELET VOLUME 10.6 fL (7.4-11.4); MONOCYTES # (AUTO) 0.7 10^3/uL (0.0-1.0); MONOCYTES % (AUTO) 8.7 %; NEUTROPHILS # (AUTO) 5.2 10^3/uL (1.5-6.6); NEUTROPHILS % (AUTO) 66.6 %; PLT - PLATELET COUNT 244 10^3/uL (130-450); RED BLOOD COUNT 4.92 10^6/uL (4.70-6.10); RED CELL DISTRIBUTION WIDTH 13.2 % (12.0-15.0); WHITE BLOOD COUNT 7.8 x10^3/uL (4.8-10.8)
[2022-08-09 12:09] LABS: ALBUMIN 4.3 g/dL (3.2-5.5); ALBUMIN/GLOBULIN RATIO 1.3 (1.0-2.2); ALKALINE PHOSPHATASE 91 IU/L (42-121); ALT ALANINE AMINOTRANSFERASE 37 IU/L (10-60); AST ASPARTATE AMINOTRANSFERASE 36 IU/L (10-42); BILIRUBIN,TOTAL 0.8 mg/dL (0.2-1.0); BUN - BLOOD UREA NITROGEN 13 mg/dL (6-20); CALCIUM 9.7 mg/dL (8.5-10.3); CARBON DIOXIDE - CO2 26 mmol/L (21-32); CHLORIDE 106 mmol/L (101-111); CHOL/HDL RATIO 2.7 (<5.0); CHOLESTEROL 110 mg/dL; CREATININE 1.1 mg/dL (0.6-1.2); GFR - MDRD 85 (>89); GLUCOSE 150 mg/dL (70-100); HDL CHOLESTEROL 41 mg/dL; LDL CHOLESTEROL,CALCULATED 57 mg/dL; LDL/HDL RATIO 1.4 (<3.6); POTASSIUM 3.8 mmol/L (3.5-5.0); SODIUM 139 mmol/L (135-145); TOTAL PROTEIN 7.7 g/dL (6.7-8.2); TRIGLYCERIDES 58 mg/dL; VLDL CHOLESTEROL 12 mg/dL
[2022-08-09 12:15] LABS: CREATININE,URINE 203.3 mg/dL; MICROALBUM/CREATININE RATIO,UR 18.7 ug/mg (<30.0); MICROALBUMIN,URINE 3.8 mg/dL (0-300.0)
[2022-08-09 12:19] LABS: THYROID STIMULATING HORMONE 1.03 uIU/mL (0.34-5.60)
[2022-08-09 12:29] LABS: ESTIMATED AVERAGE GLUCOSE 146 mg/dL (70-100); HEMOGLOBIN A1c% 6.7 % (4.27-6.07)
== END 2022-08-09 08:41 | disposition home or self-care (01) ==
LOC: LAB.N 08:40
PROVIDERS: ATTEND Internal Medicine
DX: E78.5 Hyperlipidemia, unspecified (principal); E11.9 Type 2 diabetes mellitus without complications; Z12.5 Encounter for screening for malignant neoplasm of prostate; Z13.29 Encounter for screening for other suspected endocrine disorder; I25.10 Atherosclerotic heart disease of native coronary artery without angina pectoris
CPT/HCPCS: 36415; 80053; 80061; 82043; 82570; 83036; 83721; 84153; 84443; 85025

== ENCOUNTER 2022-11-10 07:00 | Outpatient (CLI) | payer MEDICAID ==
--- NOTE | 2022-11-10 10:19 | Ultrasound Report ---
PROCEDURE: Abdomen Complete INDICATIONS: EPIGASTRIC ABDOMINAL PAIN TECHNIQUE: Real-time scanning was performed of the abdominal and retroperitoneal organs, with image documentatio n. COMPARISON: None. FINDINGS: Liver: Increased liver echogenicity, with sparing at gallbladder fossa, consistent with hepatic stea tosis. Gallbladder: Unremarkable. Biliary ducts: Intrahepatic bile ducts are non-dilated. Extrahepatic bile duct caliber measures 3 m m. Normal is 6-7 mm or less in diameter, or 10 mm or less post-cholecystectomy. Pancreas: Visualized portions of the pancreas are sonographically normal. Spleen: Spleen is normal in size and homogeneous in echotexture. Kidneys: Kidneys are normal in size and echotexture. Right kidney measures 10.9 cm long; left kidne y measures 11.4 cm long. No hydronephrosis or nephrolithiasis. No solid masses. No complex renal cy stic lesions which require follow-up. Aorta: Visualized aorta is normal in caliber at less than 3 cm. Iliacs: Proximal common iliac arteries are normal in caliber at less than 2.5 cm. IVC: Intrahepatic inferior vena cava is patent. Miscellaneous: No free abdominal fluid. IMPRESSION: Hepatic steatosis. Reviewed by: Danilo Philippe on 11/10/2022 10:17 AM PDT Approved by: Danilo Philippe on 11/10/2022 10:17 AM PDT Station ID: [id number]
== END 2022-11-10 07:01 | disposition home or self-care (01) ==
LOC: DI 07:00
PROVIDERS: ATTEND Internal Medicine
DX: K76.0 Fatty (change of) liver, not elsewhere classified (principal); R10.13 Epigastric pain

== ENCOUNTER 2023-04-15 09:11 | Outpatient (CLI) | payer MEDICAID ==
[2023-04-15 19:40] LABS: CHOL/HDL RATIO 3.4 (<5.0); CHOLESTEROL 134 mg/dL; HDL CHOLESTEROL 39 mg/dL; LDL CHOLESTEROL,CALCULATED 81 mg/dL; LDL/HDL RATIO 2.1 (<3.6); TRIGLYCERIDES 72 mg/dL (48-352); VLDL CHOLESTEROL 14 mg/dL
[2023-04-15 20:52] LABS: ESTIMATED AVERAGE GLUCOSE 140 mg/dL (70-100); HEMOGLOBIN A1c% 6.5 % (4.27-6.07)
== END 2023-04-15 09:12 | disposition home or self-care (01) ==
LOC: LAB.N 09:11
PROVIDERS: ATTEND Internal Medicine
DX: E11.9 Type 2 diabetes mellitus without complications (principal)
CPT/HCPCS: 36415; 80061; 83036; 83721